=== PATIENT | male | born 1965 | race Caucasian/White ===

== ENCOUNTER 2016-06-08 09:16 | Emergency (ER) | payer MEDICARE ==
[2016-06-08 09:24] VITALS: BP 145/101
[2016-06-08] MEDS ORDERED: Albuterol/Ipratropium NEB.SOL* Albuterol 2.5 MG/Ipratropium 0.5 MG 3 ML INH ONE ×2 (09:56→11:02)
--- NOTE | 2016-06-08 11:21 | RAD ---
Indication: Cough. 2 views of the chest demonstrates postoperative changes in the left hilum presumably from left upper lobe resection. Postoperative changes are noted. Lung pinon are clear. Some pleural thickening is noted in the right lateral chest wall. When compared to previous exam of January 12, 2016 no significant change is noted. IMPRESSION: POSTOPERATIVE CHANGES IN THE LEFT UPPER LOBE. NO ACTIVE CARDIOPULMONARY DISEASE IS NOTED.
--- NOTE | 2016-06-08 12:18 | UC ---
Queta Marshall Salem, [facility] on 06/08/16 at 0944 . Respiratory Complaint HPI - HPI Summary HPI Summary: HPI: Patient is a 51 y/o male who presents to the with a productive cough for the past 4 days. He reports having a similar experience in the past and recovering after using a nebulizer. However, he states he used a nebulizer and only experienced mild alleviation this time. He also reports using Albuterol with mild alleviation, as well. Pt reports CP with cough, but denies sore throat. Pt also reports he quit smoking one month ago. note: VSS, blood pressure 145/101, post ox: 96%, 07/01 chest discomfort, rare EtOH, half-a-pack per day smoker, colon cancer with lung metastasis in remission since 2009. Left lung 2/3 removed 12/07, COPD, asthma, PE. Visit hx otherwise noncontributory. Nurses note: SOB, productive cough started Friday. - History of Current Complaint Chief Complaint: UCRespiratory Stated Complaint: CHEST CONGESTION Time Seen by Provider: 06/08/16 09:18 Hx Obtained From: Patient Onset/Duration: Gradual Onset, Lasting Days Severity Initially: Moderate Severity Currently: Moderate Aggravating Factors: Nothing Alleviating Factors: Nothing - Allergies/Home Medications Allergies/Adverse Reactions: Allergies Allergy/AdvReac Type Severity Reaction Status Date / Time Shellfish Allergy Allergy Severe Difficulty Verified 06/08/16 09:24 Breathing Home Medications: Home Medications Bisacodyl [Dulcolax] 5 mg PO DAILY 06/08/16 [History Confirmed 06/08/16] PMH/Surg Hx/FS Hx/Imm Hx Endocrine History Of: Denies: Diabetes, Thyroid Disease Cardiovascular History Of: Reports: Deep Vein Thrombosis - & PE Denies: Cardiac Disorders, Hypertension, Pacemaker/ICD, Congestive Heart Failure, Atrial Fibrillation Respiratory History Of: Reports: COPD, Asthma, Bronchitis, Pulmonary Embolism GI/ History Of: Reports: Gastroesophageal Reflux Denies: Ulcer, Renal Disease Neurological History Of: Denies: CVA, Dementia, Seizures Other History Of: Negative For: Anticoagulant Therapy - Surgical History Surgical History: Yes Surgery Procedure, Year, and Place: Tonsillectomy, vasectomy, lumbar fusion 2002 , R hip slipped capital femoral epiphysis pinned 1977, PINS REMOVED IN 1983, ventral hernia repair, colon resection 2007, lobectomy left lung 75%, tumors removed right lung, CHEMO PORT PLACED AND REMOVED - Family History Known Family History: Positive: Cardiac Disease, Hypertension, Diabetes, Other - [place] - both parents and grandparents. - Social History Alcohol Use: Rare Substance Use Type: None Smoking Status (MU): Current Every Day Smoker Type: Cigarettes Amount Used/How Often: 1/2 PPD Length of Time of Smoking/Using Tobacco: 35 years Have You Smoked in the Last Year: Yes Household Exposure Type: Cigarettes Review of Systems Constitutional: Negative ENT: Negative Respiratory: Cough All Other Systems Reviewed And Are Negative: Yes Physical Exam Triage Information Reviewed: Yes Appearance: Well-Appearing, No Pain Distress, Well-Nourished Vital Signs: Initial Vital Signs Temp 96.2 F 06/08/16 09:19 Pulse 70 06/08/16 09:19 Resp 24 06/08/16 09:19 BP 145/101 06/08/16 09:19 Pulse Ox 96 06/08/16 09:19 Vital Signs Reviewed: Yes Eyes: Positive: Conjunctiva Clear ENT: Positive: Hearing grossly normal, Pharynx normal, TMs normal. Negative: Muffled/hoarse voice Neck: Positive: Supple, Nontender, No Lymphadenopathy Respiratory: Positive: Other: - LUNGS DIFFUSE RONCHI AND SIGNIFICANT WHEEZES. Cardiovascular: Positive: RRR, No Murmur Abdomen Description: Positive: Nontender, No Organomegaly, Soft Bowel Sounds: Positive: Present Musculoskeletal: Positive: Strength Intact, Other: - ABDALLA. Neurological: Positive: Alert Psychological: Positive: Age Appropriate Behavior UC Diagnostic Evaluation - Laboratory O2 Sat by Pulse Oximetry: 96 - Radiology Radiology Interpretation Completed By: Radiologist - CXR IMPRESSION: POSTOPERATIVE CHANGES IN THE LEFT UPPER LOBE. NO ACTIVE CARDIOPULMONARY Re-Evaluation - Re-Evaluation First Eval Re-Evaluation Time: 10:30 Change: Improved Comment: Pt feals more comfortable. Decreased SOB. Second Eval Re-Evaluation Time: 11:27 Change: Improved Comment: Lungs show better air passage. Third Eval Re-Evaluation Time: 11:35 Change: Improved - More comfortable. Decreased wheezing. Increased air exchange. Respiratory Course/Dx - Course Course Of Treatment: I discussed with the pt the need to use a spacer and that he should generously use his nebulizer device. I started him on Zithromax, he wont smoke, and he will have 4 Albuterol tx a day using a spacer with follow up with his physician next week. He will also be put on prednisone. HTN: Elevated blood pressure without diagnosis of hypertension. Blood pressure elevated patient; patient on blood pressure medication - Differential Dx/Diagnosis Provider Diagnoses: Bronchitis with bronchospasm. Discharge - Discharge Plan Condition: Stable Disposition: HOME Prescriptions: Azithromycin TAB* [Zithromax TAB*] 250 mg PO DAILY #6 tab Spacer/Aerosol-Holding Chamber [Aerochamber Mv] 1 mis XX Q6HR #1 mis predniSONE TAB* [Deltasone TAB*] 20 mg PO TID #15 tab MDD 3 [ILLS Patient Education Materials: Acute Bronchitis (ED), Bronchospasm (ED) Referrals: Mellisa Tamez MD [Primary Care Provider] - Additional Instructions: Discharge Note: Your blood pressure reading today was above 120/80. It is important that you check your blood pressure at least 3 times over the next 4 weeks. Follow up with your health care provider for any elevated blood pressure within the next four weeks for further evaluation and treatment. See other information included with your discharge paper. IF YOU NEED A HEALTH CARE PROVIDER CALL GURWINDER HAYNES AT [facility] – [place] IN THE NEXT FOUR DAYS: [phone] WE DISCUSSED: 1. YOU HAVE BRONCHITIS AND WHEEZING. 2. I HAVE GIVEN YOU A ZPAK, SPACER, PREDNISONE. 3. WATCH FOR INCREASING TEMPERATURE, SHORTNESS OF BREATH, COUGH. GO TO ED FOR ANY OF THESE. 4. CALL YOUR DOCTOR NEXT WEEK FOR FURTHER EVALUATION AND TREATMENT NEEDED. 5. ALSO: COUGH, CONGESTION of CHEST, SINUSES OR EARS: The most important goal is to liquefy all the phlegm and get it out of your head and chest. Any illness causing cough, congestion, sore throat or sinus discomfort can be helped by doing the following: STAND UNDER SHOWER STREAM TO LOOSEN SECRETIONS. STAY AWAY FROM ANY SMOKE OR IRRITANTS. WHAT ELSE CAN HELP RELIEVE YOUR SYMPTOMS: GENERAL TYPES OF MEDICINE THAT MAY HELP DECONGESTANTS: helps relieve stuffiness and clears sinuses. Pseudoephedrine ( Sudafed or generic) is effective but you need to ask the pharmacist for it because it may be kept behind the counter. ANTIHISTAMINES: are NOT helpful in many colds and flus because they can worsen sore throat, dry eyes and mouth and cause drowsiness. Examples are diphenhydramine, doxylamine and chlorpheniramine. They can help dry you out if you are having profuse, clear drainage from the nose. EXPECTORANTS: helps thin mucous in the nose and chest, making it easier to clear the fluid out. Expectorants are in most combination cough/cold remedies and should be taken with plenty of water. Guaifenesin is the most common expectorant and it comes in pill or liquid form. Mucinex is an extended release form of guaifenesin. COUGH SUPPRESANT: reduces the body's cough reflex. Dextromethorphan is in over the counter products, but sometimes narcotics such as codeine or hydrocodone are used to suppress cough. SPECIFIC MEDICATIONS: The most important goal is to liquefy all the phlegm and get it out of your head and chest: The following medicines (in prescription form or you can buy them without prescription) may help: To help with cough: DEXTROMETHORPHAN (Vicks, Robitussin, Nyquil and other brands) To help break up phlegm: GUAIFENESIN (Mucinex, Robitussin, other brands) To help clear congestion: PSEUDOEPHEDRINE (Sudafed, Dimetapp, other brands) TRY TO CLEAR NOSE: AFRIN NASAL SPRAY: 2-3 SPRAYS PER NOSTRIL, TWICE A DAY FOR TWO DAYS ONLY. USEFUL WAYS TO FEEL BETTER WITHOUT MEDICATIONS: STAND UNDER SHOWER STREAM TO LOOSEN SECRETIONS. USE A VAPORIZOR. STAY AWAY FROM ANY SMOKE OR IRRITANTS. USE SALINE NASAL SPRAY TO KEEP FLOW OF MUCOUS FROM NOSTRILS AND SINUSES. CONSIDER USING NETI POT TO HELP WITH ALLERGIES AND CONGESTION IN THE NOSE. USE THIS THREE TIMES A WEEK. YOU CAN GET THIS AT [facility] IN [place] OR VARIOUS DRUGSTORES. DRINK LOTS OF WARM FLUIDS USEFUL HOME REMEDIES: WARM WATER GARGLES, WITH TSP OF SALT PER 8 OUNCES OF WATER, GARGLE FOR A FEW SECONDS AND SPIT OUT; GARGLE AND SPIT OUT; EVERY THREE HOURS. AND/OR: WARM WATER OR TEA, HONEY AND LEMON; 2-3 CUPS A DAY. FOR SORE THROAT: KEEP THROAT MOIST WITH LOZENGES; TEA AND HONEY. USE WARM WATER GARGLES 3-4 TIMES A DAY. FOLLOW UP: RE-CHECK IN 1O DAYS, NEEDED, IF YOU ARE NOT IMPROVING. RETURN HERE OR SEE YOUR PHYSICIAN. RE-CHECK SOONER IF INCREASED PAIN OR TEMPERATURE. The documentation as recorded by the Queta moses Salem accurately reflects the service I personally performed and the decisions made by me, Aidan Allison MD.
== END 2016-06-08 11:43 | disposition home or self-care (01) ==
LOC: UCEAST 09:16
DX: J20.9 Acute bronchitis, unspecified (principal); F17.210 Nicotine dependence, cigarettes, uncomplicated
CPT/HCPCS: 71020; 99213; A9270-GY; G0463

== ENCOUNTER 2016-09-19 12:13 | Emergency (ER) | payer MEDICARE ==
[2016-09-19] MEDS: NS 0.9% 1000 ML* 1,000 ML IV SCH ×2 (13:20→16:47)
[2016-09-19 13:34] LABS: Hematocrit 45 % (42-52); Hemoglobin 15.3 g/dl (14.0-18.0); Mean Corpuscular HGB Conc 34 g/dl (31-36); Mean Corpuscular Hemoglobin 30 pg (27-31); Mean Corpuscular Volume 87 fL (80-94); Mean Platelet Volume 8 um3 (7.4-10.4); Red Blood Count 5.17 10^6/ul (4.0-5.4); Red Cell Distribution Width 15 % (10.5-15); White Blood Count 5.6 10^3/ul (3.5-10.8)
[2016-09-19 13:50] LABS: Albumin 4.3 g/dL (3.2-5.2); BUN/Creatinine Ratio 13.9 (8-20); C Reactive Protein 10.23 mg/L (< 5.00); Calcium 9.6 mg/dL (8.6-10.3); EGFR African American 86.2 (>60); Globulin 2.7 g/dL (2-4); Potassium 4.2 mmol/L (3.5-5.0); Total Bilirubin 0.5 mg/dL (0.2-1.0)
[2016-09-19] MEDS ORDERED: Ondansetron INJ* 2 MG/ML VIAL IV ONE ×2 (13:57→16:33)
[2016-09-19] MEDS ORDERED: HYDROmorphone* 1 MG/ML 1 ML SYR IV ONE ×2 (13:57→16:33)
--- NOTE | 2016-09-19 14:51 | RAD ---
CLINICAL HISTORY: Right flank pain COMPARISON: November 03, 2015 TECHNIQUE: Multiple contiguous axial CT scans were obtained of the abdomen and pelvis, without intravenous contrast enhancement. Coronal and sagittal multiplanar reformations are submitted for review. Oral contrast was not administered. FINDINGS: LUNG BASES: The lung bases are clear. LIVER: The liver is diffusely low in attenuation compared to the spleen. There are no focal hepatic parenchymal masses. BILE DUCTS: There is no intrahepatic or extrahepatic biliary dilatation. GALLBLADDER: The gallbladder is normal, without pericholecystic inflammatory change. PANCREAS: The pancreas is normal, without mass or ductal dilatation. SPLEEN: Normal in size and appearance. UPPER GI TRACT: Evaluation of the gastrointestinal tract is limited by incomplete gastric distention. The upper GI tract is unremarkable. SMALL BOWEL AND MESENTERY: The small bowel is normal in contour, course, and caliber. There is no obstruction or dilatation. COLON: The colon is normal in contour, course, caliber. There is no pericolonic inflammatory change. ADRENALS: Normal bilaterally. KIDNEYS: The kidneys are normal in shape, size, contour, and axis. There is no hydronephrosis or nephrolithiasis. BLADDER: The bladder is collapsed and is not well evaluated. PELVIC ORGANS: The prostate gland is normal. The seminal vesicles are symmetric. AORTA: There is calcific atherosclerotic disease of the abdominal aorta and its branches, without aneurysmal dilatation IVC: Unremarkable LYMPH NODES: There is no lymphadenopathy by size criteria. ABDOMINAL WALL: A hernia repair mesh is noted. There is a small residual fat-containing ventral hernia BONES AND SOFT TISSUES: The patient is status post laminectomy and fusion. OTHER: None IMPRESSION: 1. FATTY LIVER. 2. STATUS POST HERNIA REPAIR WITH A SMALL RESIDUAL FAT-CONTAINING VENTRAL HERNIA. 3. NO APPRECIABLE HYDRONEPHROSIS OR NEPHROLITHIASIS
[2016-09-19] MEDS ORDERED: Dicyclomine CAP* 10 MG PO ONE (19:14)
[2016-09-19 19:57] VITALS: BP 122/75
[2016-09-19] MEDS ORDERED: Ondansetron ODT TAB* 4 MG PO ONE (20:00)
--- NOTE | 2016-09-19 21:49 | ED ---
Leatha Marshall Edward, scribed for Doe Baez MD on 09/19/16 at 1350 . Abdominal Pain/Male - HPI Summary HPI Summary: 51 y/o male presents to ED c/o diffuse ABD pain starting at 05:00 this morning. The pain comes in intermittent episodes lasting minutes (varying from a few minutes to 30 minutes). The pain is not aggravated or alleviated by position change. Associated sx: chronic back pain, chronic problems with bowel movements (last bowel movement last night), nausea and diarrhea. Denies problems with urination. PMHx colon CA 2006. SHx partial colectomy, back surgery ([place] 2002). Not allergic to any medications. - History of Current Complaint Chief Complaint: EDAbdPain Stated Complaint: ABD PAIN, Time Seen by Provider: 09/19/16 13:32 Hx Obtained From: Patient Onset/Duration: Sudden Onset, Lasting Hours - 05:00, Still Present Timing: Intermittent, Lasting Minutes - 10-30 minutes, varying Severity Initially: Severe Severity Currently: Severe Pain Intensity: 8 Pain Scale Used: 0-10 Numeric Location: Discrete At: RUQ, Discrete At: RLQ Character: Other: - Stabbing Aggravating Factor(s): Nothing Alleviating Factor(s): Nothing Associated Signs And Symptoms: Positive: Negative - No trouble with urination, Nausea, Diarrhea - Chronic - Allergies/Home Medications Allergies/Adverse Reactions: Allergies Allergy/AdvReac Type Severity Reaction Status Date / Time Shellfish Allergy Allergy Severe Difficulty Verified 08/15/16 10:06 Breathing PMH/Surg Hx/FS Hx/Imm Hx Previously Healthy: No Endocrine/Hematology History: Denies: Hx Anticoagulant Therapy, Hx Diabetes, Hx Systemic Lupus Erythematosus, Hx Thyroid Disease Cardiovascular History: Reports: Hx Deep Vein Thrombosis - & PE Denies: Hx Congestive Heart Failure, Hx Hypertension, Hx Pacemaker/ICD, Other Cardiovascular Problems/Disorders Respiratory History: Reports: Hx Asthma, Hx Chronic Obstructive Pulmonary Disease (COPD), Hx Pulmonary Embolism, Hx Sleep Apnea, Other Respiratory Problems/Disorders - HX OF PE AND METASTATIC COLON CA INTO LUNG GI History: Reports: Other GI Disorders - Colon CA 2006 Denies: Hx Ulcer History: Reports: Other Problems/Disorders - Hx endometriosis Denies: Hx Dialysis, Hx Renal Disease Musculoskeletal History: Reports: Hx Arthritis - RA jr. as child, Hx Back Problems, Other Musculoskeletal History - R hip (see above), lumbar fusion 2002 , juvenile RA Denies: Hx Rheumatoid Arthritis Sensory History: Denies: Hx Hearing Aid Neurological History: Denies: Hx Dementia, Hx Headaches, Hx Seizures Psychiatric History: Reports: Hx Panic Disorder - ANXIETY Denies: Hx Substance Abuse - Cancer History Cancer Type, Location and Year: Colon CA first dx 2006, lung metastasis 2009, in remission Hx Chemotherapy: - 2009 - Surgical History Surgery Procedure, Year, and Place: Tonsillectomy, vasectomy, lumbar fusion 2002 , R hip slipped capital femoral epiphysis pinned 1977, PINS REMOVED IN 1982, ventral hernia repair, colon resection 2006, lobectomy left lung 75%, tumors removed right lung, CHEMO PORT PLACED AND REMOVED Infectious Disease History: No Infectious Disease History: Denies: Hx Clostridium Difficile, Hx Hepatitis, Hx Human Immunodeficiency Virus (HIV), Hx of Known/Suspected MRSA, Hx Shingles, Hx Tuberculosis, Hx Known/ Suspected VRE, Hx Known/Suspected VRSA, History Other Infectious Disease, Traveled Outside the [place] in Last 30 Days - Family History Known Family History: Positive: Cardiac Disease, Hypertension, Diabetes, Other - [place] - both parents and grandparents. - Social History Alcohol Use: Rare Substance Use Type: Reports: None Hx Tobacco Use: Yes Smoking Status (MU): Current Every Day Smoker Type: Cigarettes Amount Used/How Often: 1/2 PPD Length of Time of Smoking/Using Tobacco: 35 years Have You Smoked in the Last Year: Yes Review of Systems Constitutional: Negative Eyes: Negative ENT: Negative Cardiovascular: Negative Respiratory: Negative Positive: Abdominal Pain, Diarrhea, Nausea, Other - Chronic problems with bowel movements Genitourinary: Negative - Denies trouble with urination Positive: Myalgia - Chronic back pain Skin: Negative Neurological: Negative Psychological: Normal All Other Systems Reviewed And Are Negative: Yes Physical Exam Triage Information Reviewed: Yes Vital Signs On Initial Exam: Initial Vitals Temp Pulse Resp BP Pulse Ox 97.2 F 66 20 144/110 99 09/19/16 12:24 09/19/16 12:24 09/19/16 12:24 09/19/16 12:24 09/19/16 12:24 Vital Signs Reviewed: Yes Appearance: Positive: Well-Appearing, No Pain Distress Skin: Positive: Warm, Skin Color Reflects Adequate Perfusion, Dry Head/Face: Positive: Normal Head/Face Inspection Eyes: Positive: Normal ENT: Positive: Normal ENT inspection Neck: Positive: Supple, Nontender Cardiovascular: Positive: RRR Abdomen Description: Positive: Soft, Other: - Tender in RLQ, mildly tender in RUQ. Bowel Sounds: Positive: Present Musculoskeletal: Positive: Normal Neurological: Positive: Normal Psychiatric: Positive: Normal, Affect/Mood Appropriate Diagnostics - Vital Signs Vital Signs Temp Pulse Resp BP Pulse Ox 09/19/16 13:00 70 132/88 98 09/19/16 12:39 60 99 09/19/16 12:37 117/96 09/19/16 12:25 97.4 F 68 20 144/110 98 09/19/16 12:24 97.2 F 66 20 144/110 99 - Laboratory Lab Results: Lab Results 09/19/16 Range/Units 13:16 WBC 5.6 (3.5-10.8) 10^3/ul RBC 5.17 (4.0-5.4) 10^6/ul Hgb 15.3 (14.0-18.0) g/dl Hct 45 (42-52) % MCV 87 (80-94) fL MCH 30 (27-31) pg MCHC 34 (31-36) g/dl RDW 15 (10.5-15) % Plt Count 174 (150-450) 10^3/ul MPV 8 (7.4-10.4) um3 Neut % (Auto) 68.3 (38-83) % Lymph % (Auto) 24.2 L (25-47) % [place] % (Auto) 6.3 (1-9) % Eos % (Auto) 0.4 (0-6) % Baso % (Auto) 0.8 (0-2) % Absolute Neuts (auto) 3.8 (1.5-7.7) 10^3/ul Absolute Lymphs (auto) 1.4 (1.0-4.8) 10^3/ul Absolute Monos (auto) 0.4 (0-0.8) 10^3/ul Absolute Eos (auto) 0 (0-0.6) 10^3/ul Absolute Basos (auto) 0 (0-0.2) 10^3/ul Absolute Nucleated RBC 0.01 10^3/ul Nucleated RBC % 0.1 Result Diagrams: 09/19/16 13:16 09/19/16 13:16 Lab Statement: Any lab studies that have been ordered have been reviewed, and results considered in the medical decision making process. - CT ABD/PELVIS CT CT Interpretation: Positive (See Comments) - 1. FATTY LIVER. 2. STATUS POST HERNIA REPAIR WITH A SMALL RESIDUAL FAT-CONTAINING VENTRAL HERNIA. 3. NO APPRECIABLE HYDRONEPHROSIS OR NEPHROLITHIASIS CT Interpretation Completed By: Radiologist Abdominal Pain Fem Course/Dx - Course Course Of Treatment: Mr. Kelly has had a peristaltic-type pain in his RLQ since 0500. It goes away completely in between waves that last seconds to minutes. His W/U here including labs and CT was negative and he improved some with medications. He may be brewing a problem but is stable now and I will let him go home and F/U with Dr. Martinez in the morning. Assessment/Plan: Discussed care with Dr. Sheri Lopez (Surgery) @ 16:08. She agreed to come see the patient in the ED. - Diagnoses Provider Diagnoses: Abdominal pain Discharge - Discharge Plan Condition: Stable Disposition: HOME Patient Education Materials: Abdominal Pain (ED) Referrals: Aidan Martinez MD [Medical Doctor] - 1 Day (Follow up with Dr. Martniez in the morning please.) The documentation as recorded by the Leatha moses Edward accurately reflects the service I personally performed and the decisions made by , Doe Baez MD.
== END 2016-09-19 19:58 | disposition home or self-care (01) ==
LOC: ED 12:13
DX: R10.84 Generalized abdominal pain (principal); R19.7 Diarrhea, unspecified; F17.210 Nicotine dependence, cigarettes, uncomplicated
CPT/HCPCS: 36415; 74176; 80053; 83605; 83690; 85025; 85610; 85730; 86140; 96374; 96375; 99284; A9270-GY; J1170; J2405

== ENCOUNTER 2016-12-25 10:07 | Emergency (ER) | payer MEDICARE ==
[2016-12-25 10:34] VITALS: BP 135/91
--- NOTE | 2016-12-25 11:24 | UC ---
Respiratory Complaint HPI - HPI Summary HPI Summary: PT WITH H/O LUNG RESECTION DUE TO METASTATIC COLON CANCER PRESENTS WITH SEVERAL DAYS OF PRODUCTIVE COUGH, CONGESTION, FATIGUE, CHEST TIGHTNESS AND SCRATCHY THROAT. SX WORSE WHEN HE LAYS FLAT. NO FEVER. FEELS SOB AND WHEEZY. HAS ALBUTEROL AT HOME WHICH HELPS TRANSIENTLY. - History of Current Complaint Chief Complaint: UCRespiratory Stated Complaint: COUGH CONGESTION Time Seen by Provider: 12/25/16 11:05 Hx Obtained From: Patient Onset/Duration: Gradual Onset, Lasting Days, Still Present Timing: Constant Severity Initially: Moderate Severity Currently: Moderate Pain Intensity: 7 Pain Scale Used: 0-10 Numeric Character: Cough: Productive Aggravating Factors: Recumbent Position Alleviating Factors: Bronchodilator Associated Signs And Symptoms: Positive: Dyspnea, Wheezing, URI, Nasal Congestion. Negative: Fever, Chills, Pleuritic Chest Pain - Allergies/Home Medications Allergies/Adverse Reactions: Allergies Allergy/AdvReac Type Severity Reaction Status Date / Time Shellfish Allergy Allergy Severe Difficulty Verified 12/18/16 10:03 Breathing PMH/Surg Hx/FS Hx/Imm Hx Respiratory History: COPD, Asthma Cancer History: Colorectal Cancer - WITH METS TO LUNGS Other History Of: Negative For: Anticoagulant Therapy - Surgical History Surgical History: Yes Surgery Procedure, Year, and Place: Tonsillectomy, vasectomy, lumbar fusion 2002 , R hip slipped capital femoral epiphysis pinned 1977, PINS REMOVED IN 1982, ventral hernia repair, colon resection 2006, lobectomy left lung 75%, tumors removed right lung, CHEMO PORT PLACED AND REMOVED - Family History Known Family History: Positive: Cardiac Disease, Hypertension, Diabetes, Other - [place] - both parents and grandparents. - Social History Alcohol Use: Occasionally Alcohol Amount: 0-2 per week Substance Use Type: None Smoking Status (MU): Light Every Day Tobacco Smoker Type: Cigarettes Amount Used/How Often: 1/2 PPD Length of Time of Smoking/Using Tobacco: 35 years Have You Smoked in the Last Year: Yes Household Exposure Type: Cigarettes Review of Systems Constitutional: Fatigue ENT: Sore Throat, Nasal Discharge Respiratory: Shortness Of Breath, Cough Cardiovascular: Negative Gastrointestinal: Negative All Other Systems Reviewed And Are Negative: Yes Physical Exam Triage Information Reviewed: Yes Appearance: No Pain Distress, Well-Nourished, Ill-Appearing - MILD Vital Signs: Initial Vital Signs Temp 96.1 F 12/25/16 10:26 Pulse 72 12/25/16 10:26 Resp 17 12/25/16 10:26 BP 135/91 12/25/16 10:26 Pulse Ox 99 12/25/16 10:26 Vital Signs Reviewed: Yes Eyes: Positive: Conjunctiva Clear ENT: Positive: Hearing grossly normal Neck: Positive: Supple, Nontender, No Lymphadenopathy Respiratory: Positive: No respiratory distress, No accessory muscle use, Decreased breath sounds, Wheezing - DIFFUSE Cardiovascular Exam: Normal Abdomen Description: Positive: Soft Musculoskeletal: Positive: No Edema Neurological: Positive: Alert Psychological: Positive: Age Appropriate Behavior Skin: Negative: rashes UC Diagnostic Evaluation - Laboratory O2 Sat by Pulse Oximetry: 99 Respiratory Course/Dx - Course Course Of Treatment: PT DECLINES NEB TREATMENT HERE. PREFERS TO DO IT AT HOME. RX FOR PREDNISONE AND AZITH TODAY. F/U IF NEEDED. - Differential Dx/Diagnosis Provider Diagnoses: ACUTE BRONCHITIS WITH BRONCHOSPASM Discharge - Discharge Plan Condition: Stable Disposition: HOME Prescriptions: Azithromycin [Azithromycin 500 MG TAB] 500 mg PO DAILY #5 tab predniSONE TAB* [Deltasone TAB*] 50 mg PO DAILY #5 tab Patient Education Materials: Acute Bronchitis (ED), Bronchospasm (ED) Referrals: Mellisa Tamez MD [Primary Care Provider] - If Needed Additional Instructions: USE YOUR NEBS PRESCRIBED. SEEK FOLLOW-UP IF YOU ARE NOT IMPROVING EXPECTED WITH TREATMENT.
== END 2016-12-25 11:32 | disposition home or self-care (01) ==
LOC: UCEAST 10:07
DX: J20.9 Acute bronchitis, unspecified (principal); F17.210 Nicotine dependence, cigarettes, uncomplicated; I10 Essential (primary) hypertension
CPT/HCPCS: 99212; G0463

== ENCOUNTER 2017-03-19 16:58 | Emergency (ER) | payer MEDICARE ==
[2017-03-19] MEDS ORDERED: Aspirin Low Dose CHEW TAB* 81 MG PO ONE (17:24)
[2017-03-19 17:49] LABS: ABS Basophils 0 10^3/ul (0-0.2); ABS Eosinophils 0.1 10^3/ul (0-0.6); ABS Lymphocytes 1.7 10^3/ul (1.0-4.8); ABS Monocytes 0.7 10^3/ul (0-0.8); ABS Neutrophils 4.5 10^3/ul (1.5-7.7); ABS Nucleated RBC 0.01 10^3/ul; Eosinophil % 0.9 % (0-6); Hematocrit 42 % (42-52); Hemoglobin 14.9 g/dl (14.0-18.0); Mean Corpuscular HGB Conc 35 g/dl (31-36); Mean Corpuscular Hemoglobin 30 pg (27-31); Mean Corpuscular Volume 86 fL (80-94); Mean Platelet Volume 8 um3 (7.4-10.4); Nucleated Red Blood Cells % 0.1; Platelet Count 166 10^3/ul (150-450); Red Blood Count 4.94 10^6/ul (4.0-5.4); Red Cell Distribution Width 15 % (10.5-15); White Blood Count 6.9 10^3/ul (3.5-10.8)
[2017-03-19] MEDS ORDERED: Morphine INJ* 4 MG/ML 1 ML CARPUJECT IV ONE (17:56)
[2017-03-19 18:05] LABS: EGFR Non-African American 70.6 (>60)
--- NOTE | 2017-03-19 18:08 | RAD ---
INDICATION: Chest pain. COMPARISON: Comparison is made with a prior CT of the chest from December 04, 2016 and a prior chest x-ray study from June 08, 2016. TECHNIQUE: A portable view of the chest was obtained. FINDINGS: The heart is within normal limits in size. There is increased density which projects medially over the left upper lobe toward the lung apex which is unchanged from the prior study and appears to correlate with postsurgical changes and a prominent fat pad on the prior CT of the chest study. The lungs are otherwise clear. No pleural effusion is seen. Multiple surgical clips project over the left hilum. IMPRESSION: POSTSURGICAL CHANGES, NO EVIDENCE FOR ACUTE FINDING.
[2017-03-19] MEDS ORDERED: Ondansetron INJ* 2 MG/ML VIAL ONE (18:19)
[2017-03-19] MEDS ORDERED: Ondansetron INJ* 2 MG/ML VIAL IV ONE (18:23)
[2017-03-19] MEDS ORDERED: Ketorolac INJ* 30 MG/ML 1 ML VIAL IV PUSH ONE (19:25)
[2017-03-19 19:42] VITALS: BP 135/92
--- NOTE | 2017-03-19 21:23 | ED ---
Franck Marshall Gabriel, scribed for Maxwell Decker MD on 03/19/17 at 1753 . HPI Chest Pain - HPI Summary HPI Summary: This patient is a 51 year old M presenting to [facility] with a chief complaint of CP since 03/17/17. The patient rates the pain 4/10 in severity, located in his left side, and describes it as waxing and waning. Patient reports fatigue, palpitations, and SOB. Patient denies cough and increased Le or back pain from baseline. Patient has not experience any recent trauma and recently quit smoking. He has history of PE and has had a mild heart attack. Also he had colon cancer that metastasized into his lungs but states it is currently in remission, per Dr. Ayers. He reports that the pain currently does not feel similar to his PE. He has not taken ASA today. Patient recently was diagnosed with DM but denies new weight loss or gain. - History of Current Complaint Chief Complaint: EDChestPainROMI Time Seen by Provider: 03/19/17 17:46 Hx Obtained From: Patient Onset/Duration: Started Days Ago - 2 Timing: Constant Initial Severity: Mild Current Severity: Mild Pain Intensity: 4 Pain Scale Used: 0-10 Numeric Chest Pain Location: Left Anterior Chest Pain Radiates: No - Allergy/Home Medications Allergies/Adverse Reactions: Allergies Allergy/AdvReac Type Severity Reaction Status Date / Time Shellfish Allergy Allergy Severe Difficulty Verified 02/17/17 10:28 Breathing Home Medications: Home Medications Bisacodyl EC TAB* [Dulcolax EC TAB*] 5 mg PO DAILY PRN 03/19/17 [History Confirmed 03/19/17] metFORMIN* [Glucophage 500 MG TAB *] 500 mg PO BID 03/19/17 [History Confirmed 03/19/17] PMH/Surg Hx/FS Hx/Imm Hx Previously Healthy: No Endocrine/Hematology History: Reports: Hx Diabetes Denies: Hx Anticoagulant Therapy, Hx Systemic Lupus Erythematosus, Hx Thyroid Disease Cardiovascular History: Reports: Hx Deep Vein Thrombosis - & PE Denies: Hx Congestive Heart Failure, Hx Hypertension, Hx Pacemaker/ICD, Other Cardiovascular Problems/Disorders Respiratory History: Reports: Hx Asthma, Hx Chronic Obstructive Pulmonary Disease (COPD), Hx Pulmonary Embolism, Hx Sleep Apnea, Other Respiratory Problems/Disorders - HX OF PE AND METASTATIC COLON CA INTO LUNG GI History: Reports: Other GI Disorders - Colon CA 2006 Denies: Hx Ulcer History: Reports: Other Problems/Disorders - Hx endometriosis Denies: Hx Dialysis, Hx Renal Disease Musculoskeletal History: Reports: Hx Arthritis - RA jr. as child, Hx Back Problems, Other Musculoskeletal History - R hip (see above), lumbar fusion 2002 , juvenile RA Denies: Hx Rheumatoid Arthritis Sensory History: Denies: Hx Hearing Aid Neurological History: Denies: Hx Dementia, Hx Headaches, Hx Seizures Psychiatric History: Reports: Hx Panic Disorder - ANXIETY Denies: Hx Substance Abuse - Cancer History Cancer Type, Location and Year: Colon CA first dx 2006, lung metastasis 2009, in remission. last chemo 2009 Hx Chemotherapy: - 2009 - Surgical History Surgery Procedure, Year, and Place: Tonsillectomy, vasectomy, lumbar fusion 2002 , R hip slipped capital femoral epiphysis pinned 1977, PINS REMOVED IN 1982, ventral hernia repair, colon resection 2006, lobectomy left lung 75%, tumors removed right lung, CHEMO PORT PLACED AND REMOVED Infectious Disease History: No Infectious Disease History: Denies: Hx Clostridium Difficile, Hx Hepatitis, Hx Human Immunodeficiency Virus (HIV), Hx of Known/Suspected MRSA, Hx Shingles, Hx Tuberculosis, Hx Known/ Suspected VRE, Hx Known/Suspected VRSA, History Other Infectious Disease, Traveled Outside the [place] in Last 30 Days - Family History Known Family History: Positive: Cardiac Disease, Hypertension, Diabetes, Other - CA - both parents and grandparents. - Social History Alcohol Use: Occasionally Alcohol Amount: 0-2 per week Substance Use Type: Reports: Marijuana Hx Tobacco Use: Yes Smoking Status (MU): Former Smoker Type: Cigarettes Amount Used/How Often: recently quit as of 03/19/17 Length of Time of Smoking/Using Tobacco: 35 years Have You Smoked in the Last Year: Yes Review of Systems Positive: Fatigue Positive: Palpitations, Chest Pain Positive: Shortness Of Breath. Negative: Cough Musculoskeletal: Negative - increase in LE and back pain All Other Systems Reviewed And Are Negative: Yes Physical Exam - Summary Physical Exam Summary: Appearance: Well appearing, patient jumps with pain with any light palpitation of the left chest Skin: warm, dry, reflects adequate perfusion Head/face: normal Eyes: EOMI, PEPITO ENT: normal Neck: supple, non-tender Respiratory: CTA, breath sounds present Cardiovascular: RRR, pulses symmetrical Abdomen: non-tender, soft Bowel: present Musculoskeletal: normal, strength/ROM intact Neuro: normal, sensory motor intact, A&Ox3 Triage Information Reviewed: Yes Vital Signs On Initial Exam: Initial Vitals Temp Pulse Resp BP Pulse Ox 97.7 F 74 22 142/97 99 03/19/17 17:01 03/19/17 17:01 03/19/17 17:01 03/19/17 17:01 03/19/17 17:01 Vital Signs Reviewed: Yes Diagnostics - Vital Signs Vital Signs Temp Pulse Resp BP Pulse Ox 03/19/17 17:01 97.7 F 74 22 142/97 99 - Laboratory Lab Results: Lab Results 03/19/17 Range/Units 17:32 WBC 6.9 (3.5-10.8) 10^3/ul RBC 4.94 (4.0-5.4) 10^6/ul Hgb 14.9 (14.0-18.0) g/dl Hct 42 (42-52) % MCV 86 (80-94) fL MCH 30 (27-31) pg MCHC 35 (31-36) g/dl RDW 15 (10.5-15) % Plt Count 166 (150-450) 10^3/ul MPV 8 (7.4-10.4) um3 Neut % (Auto) 65.0 (38-83) % Lymph % (Auto) 24.0 L (25-47) % Carver % (Auto) 9.7 H (1-9) % Eos % (Auto) 0.9 (0-6) % Baso % (Auto) 0.4 (0-2) % Absolute Neuts (auto) 4.5 (1.5-7.7) 10^3/ul Absolute Lymphs (auto) 1.7 (1.0-4.8) 10^3/ul Absolute Monos (auto) 0.7 (0-0.8) 10^3/ul Absolute Eos (auto) 0.1 (0-0.6) 10^3/ul Absolute Basos (auto) 0 (0-0.2) 10^3/ul Absolute Nucleated RBC 0.01 10^3/ul Nucleated RBC % 0.1 Result Diagrams: 03/19/17 17:32 03/19/17 17:32 Lab Statement: Any lab studies that have been ordered have been reviewed, and results considered in the medical decision making process. - Radiology CXR Radiology Interpretation Completed By: Radiologist - POSTSURGICAL CHANGES, NO EVIDENCE FOR ACUTE FINDING. ED physician has reviewed this radiology report - EKG 17:08 Cardiac Rate: NL EKG Rhythm: Sinus Rhythm - at [address] Segment: Normal EKG Interpretation: normal axis, normal intervals Re-Evaluation - Re-Evaluation First Eval Re-Evaluation Time: 19:24 Change: Improved Comment: Patient is feeling better and will be given toradol. Chest Pain Course/Dx - Course Course Of Treatment: pt with equisite tenderness to chest wall. No zoster lesions. Trop 0 and ddimer neg. ECG without acute changes. No pneumonia etc. Tx for chest wall pain with improvement here. Instructed to watch out for zoster eruption. D/C to f/u closely with PMD. Assessment/Plan: Patient has a IMAN score of 0. - Diagnoses Provider Diagnoses: Atypical chest pain, Chest wall pain Discharge - Discharge Plan Condition: Good Disposition: HOME Prescriptions: Cyclobenzaprine HCl [Flexeril 5 mg (NF)] 5 mg PO TID PRN #15 tab PRN Reason: Pain Famotidine TAB* [Pepcid 20 MG TAB*] 20 mg PO BID #14 tab Naproxen Sodium [Naproxen Sodium CR 375 mg tab] 375 mg PO BID PRN #10 tab PRN Reason: Pain Patient Education Materials: Chest Pain (ED), Costochondritis (ED) Referrals: Mellisa Tamez MD [Primary Care Provider] - Additional Instructions: deep breathing exercises every hour. Return with fever, difficulty breathing, increased pain, worse or other concerns as discussed. Call your doctor first thing in the morning for follow up. The documentation as recorded by the Franck moses Gabriel accurately reflects the service I personally performed and the decisions made by me, Maxwell Decker MD.
== END 2017-03-19 19:42 | disposition home or self-care (01) ==
LOC: ED 16:58
DX: R07.89 Other chest pain (principal); R06.02 Shortness of breath; R00.2 Palpitations; Z87.891 Personal history of nicotine dependence
CPT/HCPCS: 36415; 71010; 80053; 82553; 83605; 83880; 84484; 85025; 85379; 93005; 96374; 96375; 99282; A9270-GY; J1885; J2270; J2405

== ENCOUNTER 2018-02-15 10:37 | Emergency (ER) | payer MEDICARE ==
[2018-02-15] MEDS ORDERED: Ketorolac INJ* 60 MG/2 ML VIAL IM ONE (12:05)
--- NOTE | 2018-02-15 12:17 | ED ---
Neck Pain - HPI Summary HPI Summary: Patient is a 52-year-old female with a history of chronic back pain currently on morphine 15 mg 3 times daily as well as Flexeril 10 mg 3 times daily presenting to the ED with left-sided neck pain after he awoke from sleep 5 days ago. He states the morphine does not improve his symptoms and is looking for something in addition to this. He states he is not looking for a image or additional pain medication. Has an appointment tomorrow with his pain management physician. He denies any other symptoms at this time. He states he awoke 5 days ago with left-sided neck pain radiating from cervical spine and is having difficulty with rotating to the left or right. Flexion and extension with pain. Denies any numbness or tingling. Denies any difficulty with range of motion of the ipsilateral arm. - History of Current Complaint Chief Complaint: EDNeckComplaint Stated Complaint: NECK PAIN, SHOULDER Time Seen by Provider: 02/15/18 11:26 Hx Obtained From: Patient Onset/Duration Of Injury/Symptoms: Days Mechanism Of Injury: Other - no known trauma Timing: Lasting Days Onset/Duration: Sudden Onset Severity Initially: Moderate Severity Currently: Moderate Pain Intensity: 5 Pain Scale Used: 0-10 Numeric Location: Discrete At: - left sided neck pain Aggravating Factors: Nothing Alleviating Factors: Nothing Associated Signs & Symptoms: Positive: Negative - Risk Factors Meningitis Risk Factors: Negative Risk Factors For Cervical Spine Injury: Posterior Midline Cervical Spine Tenderness - Allergies/Home Medications Allergies/Adverse Reactions: Allergies Allergy/AdvReac Type Severity Reaction Status Date / Time shellfish derived Allergy Severe Difficulty Verified 02/15/18 10:44 Breathing PMH/Surg Hx/FS Hx/Imm Hx Previously Healthy: Yes Endocrine/Hematology History: Reports: Hx Diabetes Denies: Hx Anticoagulant Therapy, Hx Systemic Lupus Erythematosus, Hx Thyroid Disease Cardiovascular History: Reports: Hx Angina, Hx Deep Vein Thrombosis - & PE Denies: Hx Congestive Heart Failure, Hx Hypertension, Hx Pacemaker/ICD, Other Cardiovascular Problems/Disorders Respiratory History: Reports: Hx Asthma, Hx Chronic Obstructive Pulmonary Disease (COPD), Hx Lung Cancer - metastatic from colon , Hx Pulmonary Embolism, Hx Sleep Apnea, Other Respiratory Problems/Disorders - HX OF PE AND METASTATIC COLON CA INTO LUNG GI History: Reports: Other GI Disorders - Colon CA 2006 Denies: Hx Ulcer History: Reports: Other Problems/Disorders - Hx endometriosis Denies: Hx Dialysis, Hx Renal Disease Musculoskeletal History: Reports: Hx Arthritis, Hx Back Problems, Other Musculoskeletal History - R hip (see above), lumbar fusion 2002 Denies: Hx Rheumatoid Arthritis Sensory History: Reports: Hx Contacts or Glasses - bifocals Denies: Hx Hearing Aid Opthamlomology History: Reports: Hx Contacts or Glasses - bifocals Neurological History: Denies: Hx Dementia, Hx Headaches, Hx Seizures Psychiatric History: Reports: Hx Anxiety, Hx Panic Disorder Denies: Hx Substance Abuse - Cancer History Cancer Type, Location and Year: Colon CA first dx 2006, lung metastasis 2009, in remission. last chemo 2009 Hx Chemotherapy: - 2009 - Surgical History Surgery Procedure, Year, and Place: Tonsillectomy, vasectomy, lumbar fusion 2002 , R hip slipped capital femoral epiphysis pinned 1977, PINS REMOVED IN 1982, ventral hernia repair, colon resection 2006, lobectomy left lung 75%, tumors removed right lung, CHEMO PORT PLACED AND REMOVED - Immunization History Date of Tetanus Vaccine: UTD Date of Influenza Vaccine: 12/2016 Hx Pertussis Vaccination: No Immunizations Up to Date: Yes Infectious Disease History: No Infectious Disease History: Denies: Hx Clostridium Difficile, Hx Hepatitis, Hx Human Immunodeficiency Virus (HIV), Hx of Known/Suspected MRSA, Hx Shingles, Hx Tuberculosis, Hx Known/ Suspected VRE, Hx Known/Suspected VRSA, History Other Infectious Disease, Traveled Outside the [place] in Last 30 Days - Family History Known Family History: Positive: Cardiac Disease, Hypertension, Diabetes, Other - [place] - both parents and grandparents. - Social History Alcohol Use: None Alcohol Amount: 0-2 per week Substance Use Type: Reports: None Hx Tobacco Use: Yes Smoking Status (MU): Current Every Day Smoker Type: Cigarettes Amount Used/How Often: 1/2 PPD Length of Time of Smoking/Using Tobacco: 35 years Have You Smoked in the Last Year: Yes Review of Systems Constitutional: Negative Negative: Fever, Chills, Fatigue, Skin Diaphoresis Negative: Palpitations, Chest Pain Negative: Shortness Of Breath, Cough Genitourinary: Negative Positive: no symptoms reported, see HPI Positive: Arthralgia - left sided neck pain Negative: Rash, Bruising Neurological: Negative All Other Systems Reviewed And Are Negative: Yes Physical Exam Triage Information Reviewed: Yes Vital Signs On Initial Exam: Initial Vitals Temp Pulse Resp BP Pulse Ox 96.9 F 89 16 156/100 98 02/15/18 10:37 02/15/18 10:37 02/15/18 10:37 02/15/18 10:37 02/15/18 10:37 Vital Signs Reviewed: Yes Appearance: Positive: Well-Appearing, Well-Nourished Skin: Positive: Skin Color Reflects Adequate Perfusion Head/Face: Positive: Normal Head/Face Inspection Eyes: Positive: EOMI, PEPITO, Conjunctiva Clear Neck: Positive: Supple Respiratory/Lung Sounds: Positive: Clear to Auscultation, Breath Sounds Present Cardiovascular: Positive: RRR, Pulses are Symmetrical in both Upper and Lower Extremities Musculoskeletal: Positive: Pain @ - left sided neck pain radiating from the posterior cervical spine Neurological: Positive: Sensory/Motor Intact, Alert, Oriented to Person Place, Time, Speech Normal Psychiatric: Positive: Affect/Mood Appropriate AVPU Assessment: Alert Diagnostics - Vital Signs Vital Signs Temp Pulse Resp BP Pulse Ox 02/15/18 10:37 96.9 F 89 16 156/100 98 - Laboratory Lab Statement: Any lab studies that have been ordered have been reviewed, and results considered in the medical decision making process. Neck Course/Dx - Course Course Of Treatment: Patient is evaluated for left-sided neck pain radiating from the posterior cervical spine. He states this occurred after sleeping on the neck wrong approximately 5 days ago. He has been taking his 50 mg 3 times daily of morphine as well as his Flexeril. He states he does not like the Flexeril due to the side effects. He states the morphine has not been improving the pain and is looking for something additional. I discussed the treatment options with the patient. Due to the mechanism of the injury, cervical CT or x-ray is not warranted at this time. Patient states he will follow up with his PCP regarding any imaging. He will be discharged with a short course of steroid as well as Toradol and is encouraged to take only the Toradol as opposed to other NSAIDs. He will also add back in his at home medication of Flexeril 3 times daily. On physical examination, there is tenderness to the posterior cervical spine only with rotation of the neck. No step-off is noted. - Diagnoses Differential Dx/HQI/PQRI: Positive: Cervical Fracture, Dystonia, Sprain, Torticollis Provider Diagnoses: Cervicalgia Discharge - Sign-Out/Discharge Documenting (check all that apply): Patient Departure - Discharge Plan Condition: Stable Disposition: HOME Prescriptions: Ketorolac TAB * [Toradol TAB *] 10 mg PO Q6H #16 tab predniSONE TAB* [Deltasone TAB*] 50 mg PO DAILY #5 tab Patient Education Materials: Cervical Strain (ED) Referrals: Mellisa Tamez MD [Primary Care Provider] - Additional Instructions: Moist heat to the area Toradol 10mg four times daily x 4 days DO NOT TAKE IBUPROFEN/MOTRIN/NAPROXEN OR OTHER NSAIDS WHILE TAKING THIS MEDICATION Prednisone once daily in the morning x 5 days Flexeril up to three times daily for muscle strain/pain Do not drive while taking flexeril or your at home morphine Please follow up with PCP as scheduled tomorrow - Billing Disposition and Condition Condition: STABLE Disposition: Home
[2018-02-15 12:32] VITALS: BP 172/104
== END 2018-02-15 12:31 | disposition home or self-care (01) ==
LOC: ED 10:37
DX: M54.2 Cervicalgia (principal); E11.9 Type 2 diabetes mellitus without complications; F17.210 Nicotine dependence, cigarettes, uncomplicated
CPT/HCPCS: 96372; 99281; J1885

== ENCOUNTER 2018-07-27 16:26 | Emergency (ER) | payer MEDICARE ==
[2018-07-27 16:47] VITALS: BP 127/82
--- NOTE | 2018-07-27 17:09 | UC ---
Respiratory Complaint HPI - HPI Summary HPI Summary: 53-year-old male comes in with a chief complaint of 4-5 days of upper respiratory tract infection symptoms. Started with a runny nose. Started moved down into his chest and he has COPD and it's making him short of breath. The inhaler medication does help with his breathing. He does have sputum production. No fevers. No pedal edema. - History of Current Complaint Chief Complaint: UCRespiratory Stated Complaint: CONGESTION,FATIGUE Time Seen by Provider: 07/27/18 16:53 Pain Intensity: 4 - Allergies/Home Medications Allergies/Adverse Reactions: Allergies Allergy/AdvReac Type Severity Reaction Status Date / Time shellfish derived Allergy Severe Difficulty Verified 07/27/18 16:47 Breathing PMH/Surg Hx/FS Hx/Imm Hx Previously Healthy: Yes Endocrine History: Diabetes Cardiovascular History: Hypertension Respiratory History: COPD Other History Of: Negative For: Anticoagulant Therapy - Surgical History Surgical History: Yes Surgery Procedure, Year, and Place: Tonsillectomy, vasectomy, lumbar fusion 2002 , R hip slipped capital femoral epiphysis pinned 1977, PINS REMOVED IN 1982, ventral hernia repair, colon resection 2006, lobectomy left lung 75%, tumors removed right lung, CHEMO PORT PLACED AND REMOVED - Family History Known Family History: Positive: Cardiac Disease, Hypertension, Diabetes, Other - [place] - both parents and grandparents. - Social History Alcohol Use: Rare Alcohol Amount: 0-2 per week Substance Use Type: None Smoking Status (MU): Current Every Day Smoker Type: Cigarettes Amount Used/How Often: 1/4 PPD Length of Time of Smoking/Using Tobacco: 35 years Have You Smoked in the Last Year: Yes Household Exposure Type: Cigarettes Review of Systems All Other Systems Reviewed And Are Negative: Yes Constitutional: Positive: Negative Skin: Positive: Negative Eyes: Positive: Negative ENT: Positive: Nasal Discharge, Sinus Congestion Respiratory: Positive: Shortness Of Breath, Cough, Other - SEE HPI Cardiovascular: Positive: Negative Gastrointestinal: Positive: Negative Motor: Positive: Negative Neurovascular: Positive: Negative Musculoskeletal: Positive: Negative Neurological: Positive: Negative Psychological: Positive: Negative Is Patient Immunocompromised?: No Physical Exam Triage Information Reviewed: Yes Appearance: No Pain Distress, Well-Nourished, Ill-Appearing - MILD Vital Signs: Initial Vital Signs Temp 95.9 F 07/27/18 16:38 Pulse 75 07/27/18 16:38 Resp 20 05/06/19 16:38 BP 127/82 07/27/18 16:38 Pulse Ox 99 07/27/18 16:38 Vital Signs Reviewed: Yes Eye Exam: Normal Eyes: Positive: Conjunctiva Clear ENT: Positive: Pharyngeal erythema, Nasal congestion, Nasal drainage, TMs normal Neck exam: Normal Neck: Positive: Supple Respiratory: Positive: No respiratory distress, Rhonchi, Wheezing Cardiovascular: Positive: RRR Musculoskeletal Exam: Normal Musculoskeletal: Positive: Strength Intact, ROM Intact, No Edema Neurological: Positive: Alert, Muscle Tone Normal Psychological Exam: Normal Psychological: Positive: Age Appropriate Behavior Skin Exam: Normal Respiratory Course/Dx - Course Course Of Treatment: DISCUSSED VIRAL VERSES BACTERIAL INFECTION AND THE ROLE OF ANTIBIOTICS. THE PATIENT PREFERS TO BE ON ANTIBIOTICS AT THIS TIME. - Differential Dx/Diagnosis Provider Diagnosis: Bronchitis, COPD (chronic obstructive pulmonary disease), Rash Discharge - Sign-Out/Discharge Documenting (check all that apply): Patient Departure All imaging exams completed and their final reports reviewed: No Studies - Discharge Plan Condition: Stable Disposition: HOME Prescriptions: Azithromyxin LETICIA (NF) [Z-Leticia (Zithromax) 250 mg tabs #6] 2 tab PO .TODAY, THEN 1 DAILY #6 tab Clotrimazole [Antifungal] 1 applic TOPICAL BID #14 gm predniSONE TAB* [Deltasone 20 MG TAB*] 40 mg PO DAILY #10 tab Patient Education Materials: Acute Bronchitis (ED), COPD (Chronic Obstructive Pulmonary Disease) (ED), Acute Rash (ED) Referrals: Mellisa Tamez MD [Primary Care Provider] - [facility] [place]FERRAL [Outside] Tato Tolentino MD [Medical Doctor] - Additional Instructions: FOLLOW UP WITH YOUR DOCTOR IF NOT COMPLETELY IMPROVED. GO TO THE EMERGENCY DEPARTMENT IF YOUR CONDITION WORSENS OR ANY QUESTIONS OR CONCERNS. - Billing Disposition and Condition Condition: STABLE Disposition: Home
== END 2018-07-27 17:20 | disposition home or self-care (01) ==
LOC: UCEAST 16:26
DX: J44.9 Chronic obstructive pulmonary disease, unspecified (principal); R21 Rash and other nonspecific skin eruption; E11.9 Type 2 diabetes mellitus without complications; I10 Essential (primary) hypertension; Z91.013 Allergy to seafood; F17.210 Nicotine dependence, cigarettes, uncomplicated
CPT/HCPCS: 99212; G0463

== ENCOUNTER 2019-03-01 11:28 | Emergency (ER) | payer MEDICARE ==
--- OUTSIDE RECORDS SUMMARY | 2019-03-01 11:33 | XMS REPORT | Summary of Care ---
:1965 Author Organization [facility] Address [address] [place] [address] Care Team Providers Name Role Phone Darío Anderson MD Primary Care Provider Reason for Visit Reason Comments Follow Up digestive trouble, wants back on lactulose Encounter Details Date Type Department Care Team Description 01/14/2019 Office Visit Eva Alvarez MD Other constipation (Primary Dx); Gastroenterology/Hepa [address] Morbid obesity ([facility]); [place] [address] Simple chronic bronchitis ([facility]); [address] [phone] Narcotic dependence ([facility]); [place] [address] Current mild episode of major depressive disorder, unspecified whether recurrent ([facility]) [phone] Allergies Active Allergy Reactions Severity Noted Date Comments Shell Fish Respiratory Reaction 10/09/2009 documented as of this encounter (statuses as of 01/20/2019) Medications Medication Sig Dispensed Refills Start Date End Date Status fluticasone-salmeter Take 1 INHL by 3 Inhaler 3 09/09/2012 Active ol diskus (ADVAIR inhalation TWICE DISKUS) 100-50 DAILY. MCG/DOSE Inhalation AEROSOL POWDER, BREATH ACTIVATED Additional information Patient taking differently: 1 INHL Inhalation DAILY, Reported on 08/06/2016 8 :57 AM cyclobenzaprine Take 1-2 Tabs by 60 Tab 5 09/10/2013 Active (FLEXERIL) 10 MG Oral mouth EVERY TabIndications: Chronic BEDTIME. pain syndrome bisacodyl (DULCOLAX) 5 Take 15 mg by 90 Tab 5 09/10/2013 Active MG Oral Tab mouth EVERY THREE ECIndications: Chronic DAYS. constipation Fluoxetine HCl 40 MG Take 1 Cap by 30 Cap 5 12/15/2013 Active Oral CapIndications: mouth DAILY. Major depression clonazePAM (KLONOPIN) 2 Take 1 Tab by 90 Tab 0 02/09/2014 Active MG Oral TabIndications: mouth THREE TIMES Chronic pain syndrome DAILY. HYDROmorphone Take 1 Tab by 60 Tab 0 02/09/2014 Active (DILAUDID) 4 MG Oral mouth EVERY TabIndications: Chronic TWELVE HOURS pain syndrome NEEDED for Pain. MAGNESIUM OXIDE PO Take by mouth. 0 Active POTASSIUM CHLORIDE PO Take by mouth. 0 Active Acidophilus Oral Cap Take 1 Cap by 30 Cap 3 10/05/2014 Active mouth DAILY. albuterol HFA Take 2 Puffs by 0 Active (VENTOLIN) 108 (90 inhalation. BASE) MCG/ACT Inhalation Aero Soln albuterol-ipratropium Take 2 Puffs by 0 Active (COMBIVENT) 18-103 inhalation FOUR MCG/ACT Inhalation TIMES DAILY. Aerosol polyethylene glycol Take 17 g by 0 Active (EQL CLEARLAX) Oral mouth DAILY. Powder Loperamide HCl Take by mouth. 0 Active (LOPERAMIDE A-D PO) morphine (MS CONTIN) 15 Take 15 mg by 0 Active MG Oral Tab CR mouth EVERY TWELVE HOURS. Omeprazole delayed rel Take 20 mg by 0 Active cap 20 MG Oral CAPSULE mouth. DELAYED RELEASE Methylnaltrexone Take 1 Tab by 30 Tab 0 08/06/2016 Active Et[place] 150 MG Oral Tab mouth DAILY 0700 on Empty Stomach. metFORMIN (GLUCOPHAGE) Take 1,000 mg by 0 Active 500 MG Oral Tab mouth TWICE DAILY. lactulose (CEPHULAC) 10 Take 30 mL by 450 mL 1 01/14/2019 Active GM/15ML Oral Solution mouth TWO TIMES DAILY NEEDED (for constipation). LACTULOSE PO Take by mouth. 0 Discontinued 019 (Reorder) documented as of this encounter (statuses as of 01/20/2019) Active Problems Problem Noted Date Current mild episode of major depressive disorder 01/20/2019 Constipation 07/26/2016 RLQ abdominal pain 08/25/2015 Rotator cuff tear, left 12/15/2013 Overview: Injury 2000 Refused rotator cuff tear surgery Dr Arce 2000 long-term (current) use of anticoagulants 09/10/2013 Overview: Managed by: [facility] Referring Provider: Kalpana Indication: PE Target Range: 2.0-3.0 Duration: Not Indicated Additional factors influencing anticoagulation: History of metastatic colon CA Concurrent use of medication affecting anticoagulation includes: Omeprazole may result in elevations of INR serum values and potentiation of anticoagulant effects. 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 Hemoptysis 07/04/2012 History of pulmonary embolism 07/01/2012 Overview: [facility] admission 06/22/12 High prob V/Q scan Atypical chest pain 03/14/2011 Overview: [facility] emergency room eval 03/12/11: ct scan chest no acute findings Ct chest [facility] 02/2011: no cancer recurrence. [facility] Morbid obesity 09/11/2010 Overview: This patient's BMI has been calculated and is above average, and BMI management plan is completed. General patient education discussion including: obesity- related excess mortality, weight loss link to reduction of risk factors for cardiac and other diseases Tobacco use 09/11/2010 Overview: <5 cigarettes per day 2011- Began age 22 Quit nov 2010 Restarted december 2010 1/3 pack per day Quit January 2011 using e cigarette Restarted smoking July 2011 Quit August 2011 Restarted October 2011 Quit october 2012 restarted fall 2012 10 cigarette daily Apr 2013 History of colon cancer, stage III 10/09/2009 Overview: S/p rectosigmoid resection Dr Cerda 2006 S/p chemotherapy 5FU/oxyplatin Dr Ayers 2006 [place], [place] Recurrence 03/2009-right lung and left lung tumors-s/p left lung partial lobectomy Dr Cerda 04/2009 S/p VATS right lung with lesion resection Dr Cerda 2009 S/p chemo Dr Ayers 07/2009: 5FU/avastin/oxyplatin Oncologist Dr Rizwan Gonzales [address] scan Zamudio 08/2009: complete remission Colonoscopy negative Dr Wall Stage at Diagnosis: [id number] (Stage III) Molecular Markers: Unknown KRAS Treatment to Date: 1. Colonoscopy and biopsy: 2006 2. Left Hemicolectomy: 2006 3. Modified FOLFOX6 x 12 cycles: 2006, details not clear 4. Left VATS with multiple wedge resections: 05/18/2009, positive for metastatic colon cancer 5. 5FLU/LV with Bevacizumab x 12 cycles: Completed 2009, RITA after this ECOG Performance Status: 1 Major depression 10/09/2009 Overview: Failed venlafaxine, duloxitene and citalopram in the past [facility] counselor Ale Pack Lumbar disc disease 10/09/2009 Overview: S/p spinal fusion [facility] 2002 Narcotic dependence 10/09/2009 Overview: Dilaudid therapy since 2002 Narcotic treatment contract signed with patient for Dr Clemons 09/30 Chronic low back pain 10/09/2009 Overview: S/P lumbar surgery 2002 documented as of this encounter (statuses as of 01/20/2019) Immunizations Name Administration Dates Next Due Influenza (IM) Preservative Free 03/10/2013, 02/03/2012, 02/08/2011, 01/08/2010 Influenza (IM) W/Pres 01/14/2014 documented as of this encounter Social History Tobacco Use Types Packs/Day Years Used Date Current Some Day Smoker Cigarettes 0.25 Quit: 10/31/2009 Smokeless Tobacco: Never Used Alcohol Use Drinks/Week oz/Week Comments No special occasions Sex Assigned at Date Recorded Not on file Job Start Date Occupation Industry Not on file Not on file Not on file Travel History Travel Start Travel End No recent travel history available. documented as of this encounter Last Filed Vital Signs Vital Sign Reading Time Taken Comments Blood Pressure 122/88 01/14/2019 2:15 PM EDT Pulse 88 01/14/2019 2:15 PM EDT Temperature - - Respiratory Rate - - Oxygen Saturation 94% 01/14/2019 2:15 PM EDT Inhaled Oxygen Concentration - - Weight 146.7 kg (323 lb 8 oz) 01/14/2019 2:15 PM EDT Height 180.3 cm (5' 11") 01/14/2019 2:15 PM EDT Body Mass Index 45.12 01/14/2019 2:15 PM EDT documented in this encounter Patient Instructions Patient InstructionsEva Renae MD - 01/14/2019 2:20 PM EDT1. Let's restart the lactulose: up to twice daily for constipation. 2. See me back as needed. Eva Renae MD documented in this encounter Progress Notes Eva Renae MD - 01/14/2019 2:20 PM EDT PATIENT: Ravi Kelly : 1965 DATE OF SERVICE: 01/14/2019 REFERRING PRACTITIONER: Izaiah PRIMARY CARE PROVIDER: Darío Anderson CHIEF COMPLAINT: Chief Complaint Patient presents with Follow Up digestive trouble, wants back on lactulose Subjective HISTORY OF PRESENT ILLNESS: Ravi Kelly is a 53-y.o. male who presents for follow up regarding chronic opiate-induced constipation. Patient has severe chronic back pain, managed with multiple opiates. He has had significantconstipation, managed fairly well in the past with lactulose. He has not been on lactulose and feelsthat the constipation can be better controlled. Past Medical History: Diagnosis Date Atypical chest pain CA - cancer Lung R&L Chronic pain syndrome 2003 lower back Dependency on pain medication (HCC) 2003 dilaudid Depression History of colon cancer 2007 Morbid obesity (HCC) Other malignant neoplasm without specification of site colon cancer stage IV Rheumatoid arthritis and other inflammatory polyarthropathies age 5 complete remission Past Surgical History: Procedure Laterality Date COLONOSCOPY 01/04/2013 Procedure: COLONOSCOPY; Surgeon: Nichelle Hoover MD; Location: [facility] MAIN OR ; Laterality: N/A; COLONOSCOPY, EGD COLONOSCOPY N/A 10/27/2015 Procedure: COLONOSCOPY; Surgeon: Eva Renae MD; Location: [facility] MAIN OR COLONOSCOPY N/A 10/15/2018 Procedure: COLONOSCOPY; Surgeon: Sebastian Lenz DO; Location: [facility] GI OR EGD 01/04/2013 Procedure: ENDOSCOPY UPPER GI; Surgeon: Nichelle Hoover MD; Location: [facility] MAIN OR; Laterality:N/A; EGD N/A 10/27/2015 Procedure: ENDOSCOPY UPPER GI; Surgeon: Eva Renae MD; Location: [facility] MAIN OR ID CHEST SURGERY PROCEDURE UNLISTED L partial lobectomy ID GI NUCLEAR PROCEDURE UNLISTED 2006 rectosigmoid resectomy UNLISTED PROCEDURE,MUSCULOSKELE 2002 triple level lower spinal fusion UNLISTED PROCEDURE,MUSCULOSKELE age 13 pins placed in R hip UNLISTED PROCEDURE,MUSCULOSKELE age 17 pins removed from R hip Family History Problem Relation Age of Onset Cancer Mother 20 ovarian Current Outpatient Medications Medication Sig Acidophilus Oral Cap Take 1 Cap by mouth DAILY. albuterol HFA (VENTOLIN) 108 (90 BASE) MCG/ACT Inhalation Aero Soln Take 2 Puffs by inhalation. albuterol-ipratropium (COMBIVENT) 18-103 MCG/ACT Inhalation Aerosol Take 2 Puffs by inhalation FOUR TIMES DAILY. bisacodyl (DULCOLAX) 5 MG Oral Tab EC Take 15 mg by mouth EVERY THREE DAYS. clonazePAM (KLONOPIN) 2 MG Oral Tab Take 1 Tab by mouth THREE TIMES DAILY. cyclobenzaprine (FLEXERIL) 10 MG Oral Tab Take 1-2 Tabs by mouth EVERY BEDTIME. Fluoxetine HCl 40 MG Oral Cap Take 1 Cap by mouth DAILY. fluticasone-salmeterol diskus (ADVAIR DISKUS) 100-50 MCG/DOSE Inhalation AEROSOL POWDER, BREATH ACTIVATED Take 1 INHL by inhalation TWICE DAILY. ( Patient taking differently: Take 1 INHL by inhalation DAILY.) HYDROmorphone (DILAUDID) 4 MG Oral Tab Take 1 Tab by mouth EVERY TWELVE HOURS NEEDED for Pain. lactulose (CEPHULAC) 10 GM/15ML Oral Solution Take 30 mL by mouth TWO TIMES DAILY NEEDED (for constipation). Loperamide HCl (LOPERAMIDE A-D PO) Take by mouth. MAGNESIUM OXIDE PO Take by mouth. metFORMIN (GLUCOPHAGE) 500 MG Oral Tab Take 1,000 mg by mouth TWICE DAILY. Methylnaltrexone [place] 150 MG Oral Tab Take 1 Tab by mouth DAILY 0700 on Empty Stomach. morphine (MS CONTIN) 15 MG Oral Tab CR Take 15 mg by mouth EVERY TWELVE HOURS. Omeprazole delayed rel cap 20 MG Oral CAPSULE DELAYED RELEASE Take 20 mg by mouth. polyethylene glycol (EQL CLEARLAX) Oral Powder Take 17 g by mouth DAILY. POTASSIUM CHLORIDE PO Take by mouth. No current facility-administered medications for this visit. Allergies Allergen Reactions Shell Fish Respiratory Reaction Social History Socioeconomic History Marital status: Spouse name: Not on file Number of children: Not on file Years of education: Not on file Highest education level: Not on file Occupational History Not on file Social Needs Financial resource strain: Not on file Food insecurity: Worry: Not on file Inability: Not on file Transportation needs: Medical: Not on file Non-medical: Not on file Tobacco Use Smoking status: Current Some Day Smoker Packs/day: 0.25 Types: Cigarettes Last attempt to quit: 10/31/2009 Years since quittin.2 Smokeless tobacco: Never Used Substance and Sexual Activity Alcohol use: No Comment: special occasions Drug use: No Sexual activity: Not Currently Lifestyle Physical activity: Days per week: Not on file Minutes per session: Not on file Stress: Not on file Relationships Social connections: Talks on phone: Not on file Gets together: Not on file Attends uatsdin service: Not on file Active member of club or organization: Not on file Attends meetings of clubs or organizations: Not on file Relationship status: Not on file Intimate partner violence: Fear of current or ex partner: Not on file Emotionally abused: Not on file Physically abused: Not on file Forced sexual activity: Not on file Other Topics Concern Back Care Not Asked Bike Helmet Not Asked Blood Transfusions No Caffeine Concern Not Asked Exercise No Hobby Hazards Not Asked International Travel Not Asked Service Not Asked Occupational Exposure Not Asked Seat Belt Not Asked Self-Exams Not Asked Sleep Concern Not Asked Special Diet Not Asked Stress Concern Not Asked Weight Concern Yes Social History Narrative Lives with sister in [facility] -currently from who lives in [place], [place] Patient does not work Has 3 children. Grew up in [facility]. REVIEW OF SYSTEMS: All remaining review of systems was negative except for as noted in the history of present illness/subjective. Objective PHYSICAL EXAMINATION: VITALS: BP 122/88 (BP Location: Right arm, Patient Position: Sitting) | Pulse 88 | Ht 5' 11" (1.803 m) | Wt 323 lb 8 oz (146.7 kg) | SpO2 94% | BMI 45.12 kg/m Body mass index is 45.12 kg/m. GENERAL: alert, oriented, no acute distress. HEENT: No scleral icterus, MMM Psych: Affect normal Neck: no lymphadenopathy LUNGS: clear to auscultation bilaterally. HEART: regular rhythm, no murmurs, no gallops, no rubs. ABDOMEN: general exam: soft, non-tender, non-distended, without masses or organomegaly, normal active bowel sounds, Scott's sign negative. Extrmities: no edema Skin: clear Neuro: gait normal, a&o x 3 RECTAL: exam deferred. IMPRESSION: ICD-9-CM ICD-10-CM 1. Morbid obesity ([facility]) 278.01 E66.01 2. Simple chronic bronchitis ([facility]) 491.0 J41.0 3. Narcotic dependence ([facility]) 304.90 F11.20 4. Current mild episode of major depressive disorder, unspecified whether recurrent ([facility]) F32.0 Chronic constipation Plan PLAN: 1. Restart lactulose Follow up: Schedule follow-up here as needed if symptoms worsen. Author: Eva Renae MD 01/20/2019 12:51 documented in this encounter Plan of Treatment Health Maintenance Due Date Last Done Comments MEDICARE ANNUAL WELLNESS 1965 VISIT PNEUMOCOCCAL 0-64 YRS (1 of 05/25/1971 1 - PPSV23) DEPRESSION SCREENING 1977 LIPID DISORDER SCREENING 05/25/1983 DIABETES SCREENING 12/30/2014 12/30/2013, 08/22/2013, 10/02/2011 ZOSTER IMMUNIZATION SERIES 05/25/2015 (1 of 2) INFLUENZA VACCINE (#1) 2018 01/14/2014, 03/10/2013, 02/03/2012, Additional history exists COLONOSCOPY SCREENING 10/15/2021 10/15/2018, 10/15/2018, 10/27/2015, Additional history exists HPV IMMUNIZATION SERIES Aged Out No longer eligible based on patient's age to complete this topic MENINGOCOCCAL VACCINE IMM Aged Out No longer eligible based on patient's age to complete this topic documented as of this encounter Implants Implanted Type Area Mrp Controller Device Shelf Model / Identifier Expiration Serial / Date Lot Single Port A Cath - [id number] Right: [facility] [id number] / Implanted: Qty: 1 on 01/30/2010 at [facility] [employer] / Wall [id number] documented as of this encounter Results Not on filedocumented in this encounter Visit Diagnoses Diagnosis Other constipation - Primary Morbid obesity (HCC) Morbid obesity Simple chronic bronchitis (HCC) Simple chronic bronchitis Narcotic dependence (HCC) Unspecified drug dependence, unspecified Current mild episode of major depressive disorder, unspecified whether recurrent (HCC) documented in this encounter Insurance Payer Benefit Plan / Subscriber ID Effective Dates Phone Address Type Group [facility] xxxxxxxxx 2016-[facility] Medicare TODAYS OPTIONS TODAYS OPTIONS t Advantage documented as of this encounter
[2019-03-01 11:44] VITALS: BP 150/91
--- NOTE | 2019-03-01 12:10 | UC ---
Respiratory Complaint HPI - HPI Summary HPI Summary: Mr. Kelly has had some cough, congestion and difficulty breathing for couple of days. He was traveling and when he got home he began to use his rescue inhaler and nebulizer which has helped a lot. He comes in stating that essentially is here to get put on Z-Pasha and prednisone which happens frequently when he has a URI. He denies any shortness of breath right now. - History of Current Complaint Chief Complaint: UCRespiratory Stated Complaint: CONGESTION Time Seen by Provider: 03/01/19 11:55 Hx Obtained From: Patient Onset/Duration: Gradual Onset Timing: Constant Severity Initially: Mild Severity Currently: Moderate Pain Intensity: 5 Aggravating Factors: Nothing Alleviating Factors: Bronchodilator Associated Signs And Symptoms: Positive: Dyspnea, Nasal Congestion - Allergies/Home Medications Allergies/Adverse Reactions: Allergies Allergy/AdvReac Type Severity Reaction Status Date / Time shellfish derived Allergy Severe Difficulty Verified 03/01/19 11:44 Breathing PMH/Surg Hx/FS Hx/Imm Hx Previously Healthy: Yes Endocrine History: Diabetes Respiratory History: COPD, Pulmonary Embolism, Other - Lung metastases from colon cancer Other History Of: Negative For: Anticoagulant Therapy - Surgical History Surgical History: Yes Surgery Procedure, Year, and Place: right hip. lower back. bowel resection. lung surgery /2/3 left lung - Family History Known Family History: Positive: Cardiac Disease, Hypertension, Diabetes, Other - CA - both parents and grandparents. - Social History Alcohol Use: Occasionally Alcohol Amount: special occasions Substance Use Type: None Smoking Status (MU): Current Every Day Smoker Type: Cigarettes Amount Used/How Often: 1/2 PPD Length of Time of Smoking/Using Tobacco: 35 years Have You Smoked in the Last Year: Yes Household Exposure Type: Cigarettes Review of Systems All Other Systems Reviewed And Are Negative: Yes Constitutional: Positive: Negative Skin: Positive: Negative ENT: Positive: Sore Throat, Nasal Discharge Respiratory: Positive: Shortness Of Breath, Cough Physical Exam - Summary Physical Exam Summary: He is nontoxic in appearance with stable vital signs. Triage Information Reviewed: Yes Appearance: Obese - Class III Vital Signs: Initial Vital Signs Temp 95.6 F 03/01/19 11:38 Pulse 83 03/01/19 11:38 Resp 20 03/01/19 11:38 BP 150/91 03/01/19 11:38 Pulse Ox 100 03/01/19 11:38 Vital Signs Reviewed: Yes Eyes: Positive: Conjunctiva Clear ENT Exam: Normal Respiratory: Positive: Lungs clear, No respiratory distress, No accessory muscle use Cardiovascular Exam: Normal Respiratory Course/Dx - Course Course Of Treatment: Given his underlying pulmonary issues, I think it is reasonable to give him a Z- Pasha and prednisone burst although this is likely viral and still early. - Differential Dx/Diagnosis Provider Diagnosis: Bronchitis Discharge ED - Sign-Out/Discharge Documenting (check all that apply): Patient Departure All imaging exams completed and their final reports reviewed: No Studies - Discharge Plan Condition: Stable Disposition: HOME Patient Education Materials: Acute Bronchitis (ED) Referrals: Mellisa Tamez MD [Primary Care Provider] - - Billing Disposition and Condition Condition: STABLE Disposition: Home
== END 2019-03-01 12:23 | disposition home or self-care (01) ==
LOC: UCEAST 11:28
DX: J40 Bronchitis, not specified as acute or chronic (principal); E11.9 Type 2 diabetes mellitus without complications; F17.210 Nicotine dependence, cigarettes, uncomplicated; J44.9 Chronic obstructive pulmonary disease, unspecified; I26.99 Other pulmonary embolism without acute cor pulmonale; Z85.038 Personal history of other malignant neoplasm of large intestine; Z91.013 Allergy to seafood; Z85.118 Personal history of other malignant neoplasm of bronchus and lung
CPT/HCPCS: 99212; G0463

== ENCOUNTER 2019-04-18 16:58 | Observation (INO) | payer MEDICARE ==
[2019-04-18] MEDS ORDERED: NS 0.9% 1000 ML** 1,000 ML IV ONE (17:21)
--- NOTE | 2019-04-18 17:22 | ED ---
HPI Chest Pain - HPI Summary HPI Summary: Patient is a 53 y/o M presenting to the ED via EMS for a chief complaint of palpitations and midsternal chest pain that radiates to the epigastrium for the last 2 days. The chest pain is described as a heaviness and pressure sensation. He describes the palpitations as a fluttering sensation. On EMS arrival, patient was given NTG with relief of his chest pain, but he continues to have palpitations. The chest pain improves with lying down. Patient also notes fatigue, shortness of breath, headache, and urinary frequency. He denies bilateral LE edema. He took 3 doses of ibuprofen around 13:00 on 04/18/19 for his headache. PMHx of COPD, DM, GA, and pulmonary embolism 6 years ago. Patient uses an oxygen concentrator at night and as needed during the day. He sees Dr. Lowe and had a cardiac stress test with unremarkable findings. He denies taking blood thinners. - History of Current Complaint Time Seen by Provider: 04/18/19 17:10 Hx Obtained From: Patient Onset/Duration: Atraumatic, Resolved Timing: Constant Initial Severity: Moderate Current Severity: Moderate Pain Scale Used: 0-10 Numeric Chest Pain Location: Mid Sternal Chest Pain Radiates: Yes Chest Pain Radiates To:: Epigastric Character: Heaviness, Pressure/Squeezing Aggravating Factor(s): Nothing Alleviating Factor(s): NTG 123, Other: - Lying down Associated Signs and Symptoms: Positive: Headaches, Shortness of Breath, Other: - Positive fatigue and urinary frequency. Negative: Edema - Bilateral LE Related History: Obesity - Additional Pertinent History Primary Care Physician: [facility] - Allergy/Home Medications Allergies/Adverse Reactions: Allergies Allergy/AdvReac Type Severity Reaction Status Date / Time shellfish derived Allergy Severe Difficulty Verified 03/22/19 10:36 Breathing PMH/Surg Hx/FS Hx/Imm Hx Previously Healthy: Yes Endocrine/Hematology History: Reports: Hx Diabetes Denies: Hx Anticoagulant Therapy, Hx Systemic Lupus Erythematosus, Hx Thyroid Disease Cardiovascular History: Reports: Hx Angina, Hx Deep Vein Thrombosis - & PE Denies: Hx Congestive Heart Failure, Hx Hypertension, Hx Pacemaker/ICD, Other Cardiovascular Problems/Disorders Respiratory History: Reports: Hx Asthma, Hx Chronic Obstructive Pulmonary Disease (COPD), Hx Lung Cancer - metastatic from colon , Hx Pulmonary Embolism, Hx Sleep Apnea, Other Respiratory Problems/Disorders - HX OF PE AND METASTATIC COLON CA INTO LUNG GI History: Reports: Other GI Disorders - Colon CA 2006 Denies: Hx Ulcer History: Reports: Other Problems/Disorders - Hx endometriosis Denies: Hx Dialysis, Hx Renal Disease Musculoskeletal History: Reports: Hx Arthritis, Hx Back Problems, Other Musculoskeletal History - R hip (see above), lumbar fusion 2002 Denies: Hx Rheumatoid Arthritis Sensory History: Reports: Hx Contacts or Glasses - bifocals Denies: Hx Legally Blind, Hx Deafness, Hx Hearing Aid Opthamlomology History: Reports: Hx Contacts or Glasses - bifocals Denies: Hx Legally Blind EENT History: Denies: Hx Deafness Neurological History: Denies: Hx Dementia, Hx Headaches, Hx Seizures Comment Only: Other Neuro Impairments/Disorders - PAIN CLINIC PT Psychiatric History: Reports: Hx Anxiety, Hx Panic Disorder Denies: Hx Substance Abuse - Cancer History Cancer Type, Location and Year: Colon CA first dx 2006, lung metastasis 2009. last chemo 2009 Hx Chemotherapy: - 2009 - Surgical History Surgical History: Yes Surgery Procedure, Year, and Place: right hip. lower back. bowel resection. lung surgery /2/3 left lung - Immunization History Date of Tetanus Vaccine: UTD Date of Influenza Vaccine: 12/2016 Infectious Disease History: No Infectious Disease History: Denies: Hx Clostridium Difficile, Hx Hepatitis, Hx Human Immunodeficiency Virus (HIV), Hx of Known/Suspected MRSA, Hx Shingles, Hx Tuberculosis, Hx Known/ Suspected VRE, Hx Known/Suspected VRSA, History Other Infectious Disease - Family History Known Family History: Positive: Cardiac Disease, Hypertension, Diabetes, Other - CA - both parents and grandparents. - Social History Occupation: Disabled Alcohol Use: Rare Alcohol Amount: special occasions Hx Substance Use: No Substance Use Type: Reports: None Hx Tobacco Use: Yes Smoking Status (MU): Current Every Day Smoker Type: Cigarettes Amount Used/How Often: 1/2 PPD Length of Time of Smoking/Using Tobacco: 35 years Have You Smoked in the Last Year: Yes Review of Systems Positive: Fatigue Positive: Chest Pain - Midsternal that radiates to the epigastrium Positive: Shortness Of Breath Positive: frequency - Urinary Negative: Edema - Bilateral LE Positive: Headache All Other Systems Reviewed And Are Negative: Yes Physical Exam - Summary Physical Exam Summary: Constitutional: Well-developed, Obese, Alert. (-) Distressed Skin: Warm, Dry HENT: Normocephalic; Atraumatic Eyes: Conjunctiva normal Neck: Musculoskeletal ROM normal neck. (-) JVD, (-) Stridor, (-) Tracheal deviation Cardio: Rhythm regular, rate normal, Heart sounds normal; Intact distal pulses; The pedal pulses are 2+ and symmetric. Radial pulses are 2+ and symmetric. (-) Murmur Pulmonary/Chest wall: Effort normal. (-) Respiratory distress, (-) Wheezes, (-) Rales Abd: Soft, (-) tenderness, (-) Distension, (-) Guarding, (-) Rebound Musculoskeletal: (-) Edema Lymph: (-) Cervical adenopathy Neuro: Alert, Oriented x3 Psych: Mood and affect Normal Triage Information Reviewed: Yes Vital Signs Reviewed: Yes Procedures - Sedation Patient Received Moderate/Deep Sedation with Procedure: No Diagnostics - Laboratory Result Diagrams: 04/20/19 05:33 04/20/19 05:34 Lab Statement: Any lab studies that have been ordered have been reviewed, and results considered in the medical decision making process. - Radiology Chest X-ray Radiology Interpretation Completed By: Radiologist Summary of Radiographic Findings: Chest X-ray IMPRESSION: NO ACTIVE CARDIOPULMONARY DISEASE. Reviewed by Dr. Pink. - EKG 17:05 Cardiac Rate: NL - 83 BPM EKG Rhythm: Sinus Rhythm ST Segment: Normal Ectopy: None Summary of EKG Findings: EKG at 17:05 shows normal sinus rhythm with 83 BPM, no ischemic changes. Dr. Pink has reviewed and interpreted this EKG. Chest Pain Course/Dx - Course Course Of Treatment: Patient is a 53 y/o M presenting to the ED via EMS for a chief complaint of palpitations and midsternal chest pain that radiates to the epigastrium for the last 2 days. The chest pain is described as a heaviness and pressure sensation. He describes the palpitations as a fluttering sensation. On EMS arrival, patient was given NTG with relief of his chest pain, but he continues to have palpitations. The chest pain improves with lying down. Patient also notes fatigue, shortness of breath, headache, and urinary frequency. He denies bilateral LE edema. He took 3 doses of ibuprofen around 13: 00 on 04/18/19 for his headache. PMHx of COPD, DM, GA, and pulmonary embolism 6 years ago. Patient uses an oxygen concentrator at night and as needed during the day. He sees Dr. Lowe and had a cardiac stress test with unremarkable findings. He denies taking blood thinners. On exam, obese male. In the ED course, patient was given iodixanol 96 ml IV and IV fluids. EKG at 17:05 shows normal sinus rhythm with 83 BPM, no ischemic changes. Chest X-ray IMPRESSION: NO ACTIVE CARDIOPULMONARY DISEASE. Laboratory abnormal findings: Hct 41, INR 1.12, chloride 98, creatinine 1.25, glucose 144. Chest CTA was not performed by the time of admission. At 22:07, Dr. Elio Lopez agrees to admit the patient to [facility] with a diagnosis of chest pain and dyspnea. Chest CTA is pending. Patient will be admitted to [facility] with a diagnosis of chest pain and dyspnea. - Diagnoses Provider Diagnoses: Chest pain, Dyspnea - Provider Notifications Discussed Care Of Patient With: Elio Lopez - At 22:07, Dr. Elio Lopez agrees to admit the patient to [facility] with a diagnosis of chest pain and dyspnea. Time Discussed With Above Provider: 22:07 Instructed by Provider To: Admit As Inpatient Discharge ED - Sign-Out/Discharge Documenting (check all that apply): Patient Departure - Admit - Discharge Plan Condition: Stable Disposition: ADMITTED TO [facility] - Billing Disposition and Condition Condition: STABLE Disposition: Admitted to [facility] - Attestation Statements Document Initiated by Susan: Yes Documenting Scribe: Prema Palomares Provider For Whom Scribe is Documenting (Include Credential): Leander Pink DO Scribe Attestation: Prema Marshall scribed for Leander Pink DO on 04/20/19 at 0811. Scribe Documentation Reviewed: Yes Provider Attestation: The documentation as recorded by the Prema moses accurately reflects the service I personally performed and the decisions made by Leander denney DO Status of Scribadele Document: Viewed
--- OUTSIDE RECORDS SUMMARY | 2019-04-18 17:39 | XMS REPORT | Continuity of Care Document ---
:1965 External Reference #:[id number] Author Name Barbara iRos MD Address [address] [place] [address] Care Team Providers Name Role Phone [facility] - Care Team Information Hardware Trainer [phone] Gastroenterology Problems Active Problems Provider Date Low back pain Karthikeyan Teixeira D.O. Onset: 03/28/2014 Generalized anxiety disorder Karthikeyan Teixeira D.O. Onset: 03/28/2014 Chronic obstructive lung disease Karthikeyan Teixeira D.O. Onset: 03/28/2014 Constipation Karthikeyan Teixeira D.O. Onset: 03/28/2014 Spasm Karthikeyan Teixeira D.O. Onset: 03/28/2014 Nausea Karthikeyan Teixeira D.O. Onset: 04/11/2014 Migraine with typical aura Karthikeyan Teixeira D.O. Onset: 05/12/2014 Pain in thoracic spine Karthikeyan Teixeira D.O. Onset: 05/12/2014 Chronic pain syndrome Karthikeyan Teixeira D.O. Onset: 07/06/2014 Gastroesophageal reflux disease Karthikeyan Teixeira D.O. Onset: 07/06/2014 Social History Type Date Description Comments Sex Unknown Tobacco Use Start: Unknown Patient is a current most days 1/2ppd - smoker, smokes every day Smoking is variable worse with stresses. used to smoke 2 ppd before he got lung cancer. Smoking Status Reviewed: 03/11/19 Patient is a current most days 1/2ppd - smoker, smokes every day Smoking is variable worse with stresses. used to smoke 2 ppd before he got lung cancer. Allergies, Adverse Reactions, Alerts Active Allergies Reaction Severity Comments Date Shellfish-derived Products throat swelling, difficulty 03/28/2014 breathing Medications Active Medications SIG Qnty Indications Ordering Date Provider Ipratropium [place] 2 sprays each 30ml J06.9 Barbara Rios 03/26/2019 0.06% nostril three to MD Mars Solution four times daily Prednisone 3 tab by mouth 5tabs J06.9 Barbara Rios 03/26/2019 20mg Tablets every morning for MD Mars five days Ipratropium [place] 2 sprays each 30ml J20.9 Barbara Rios 03/11/2019 0.06% nostril every LMD Solution evening as needed Potassium 1-2 as needed for OTC Unknown 03/10/2019 Tablets cramping in legs, arms, hands Ducolax Every 2-3 Days as Unknown 03/10/2019 Tablets Needed Cyclobenzaprine HCL Take One Tablet Unknown 03/10/2019 5mg By Mouth Every Tablets Morning And Afternoon And Take Two Tablets By Mouth AT Bedtime Morphine Sulfate ER take 1 tablet by Unknown 03/10/2019 15mg mouth daily Tablets ER Albuterol Nebulizer prn Unknown 03/10/2019 Treatments Oxygen Concentrator use at 2 Liters Unknown 03/10/2019 when sleepingg and during day prn Cyclobenzaprine HCL 1 by mouth three 30tabs 724.2 Karthikeyan Teixeira, 2014 10mg times a day as D.O. Tablets needed as needed for muscle spasms may make you drowsy Klonopin 1 by mouth three 90tabs F41.1 Karthikeyan Teixeira, 04/11/2014 2mg Tablets times a day D.O. Combivent Respimat 1 puff four times 2units 496 Karthikeyan Teixeira, 03/28/2014 a day D.O. 20-100mcg/Act Aerosol Morphine Sulfate Take One Tablet Unknown 15mg By Mouth Three Tablets Times A Day as Needed For Pain Maximum Daily Dose 3 Tablets History Medications Prednisone 3 tab by mouth 5tabs J20.9 Barbara Rios, 03/11/2019 - 20mg every morning for MD 03/16/2019 Tablets five days Immunizations Description No Information Available Vital Signs Date Vital Result Comment 03/26/2019 9:07am BP Systolic 126 mmHg BP Diastolic 80 mmHg Heart Rate 79 /min O2 % BldC Oximetry 98 % 03/11/2019 2:38pm BP Systolic 148 mmHg BP Diastolic 90 mmHg Heart Rate 72 /min O2 % BldC Oximetry 98 % Body Temperature 98.0 F Height 72 inches 6'0" Weight 318.00 lb w/shoes BMI (Body Mass Index) 43.1 kg/m2 Results Test Acquired Date Facility Test Result H/L Range Note CBC Auto 03/19/2019 [facility] White Blood 9.5 10^3/uL Normal 3.5- 10.8 Diff [phone] Count Red Blood Count 5.21 10^6/uL Normal 4.18-5.48 Hemoglobin 15.1 g/dL Normal 14.0-18.0 Hematocrit 44 % Normal 42-52 Mean Corpuscular Volume 84 fL Normal 80-94 Mean Corpuscular Hemoglobin 29 pg Normal 27-31 Mean Corpuscular HGB Conc 35 g/dL Normal 31-36 Red Cell Distribution Width 15 % Normal 10-15 Platelet Count 184 10^3/uL Normal 150-450 Mean Platelet Volume 7.9 fL Normal 7.4-10.4 Abs Neutrophils 6.6 10^3/uL Normal 1.5-7.7 Abs Lymphocytes 2.1 10^3/uL Normal 1.0-4.8 Abs Monocytes 0.6 10^3/uL Normal 0-0.8 Abs Eosinophils 0.1 10^3/uL Normal 0-0.6 Abs Basophils 0.1 10^3/uL Normal 0-0.2 Abs Nucleated RBC 0.0 10^3/uL Granulocyte % 70.2 % Lymphocyte % 21.8 % Monocyte % 6.5 % Eosinophil % 0.8 % Basophil % 0.7 % Nucleated Red Blood Cells % 0.0 Comp Metabolic Panel 03/19/2019 [facility] Sodium 135 mmol/L Normal 135-145 [phone] Potassium 4.7 mmol/L Normal 3.5-5.0 Chloride 98 mmol/L Low 101-111 Co2 Carbon Dioxide 31 mmol/L Normal 22-32 Anion Gap 6 mmol/L Normal 2-11 Glucose 101 mg/dL High 70-100 Blood Urea Nitrogen 20 mg/dL Normal 6-24 Creatinine 1.09 mg/dL Normal 0.67-1.17 BUN/Creatinine Ratio 18.3 Normal 8-20 Calcium 9.7 mg/dL Normal 8.6-10.3 Total Protein 6.5 g/dL Normal 6.4-8.9 Albumin 4.3 g/dL Normal 3.2-5.2 Globulin 2.2 g/dL Normal 2-4 Albumin/Globulin Ratio 2.0 Normal 1-3 Total Bilirubin 0.40 mg/dL Normal 0.2-1.0 Alkaline Phosphatase 55 U/L Normal 34-104 Alt 30 U/L Normal 7-52 Ast 14 U/L Normal 13-39 Egfr Non- 70.8 >60 Egfr 85.6 >60 1 Laboratory test 03/19/2019 [facility] Hemoglobin A1c 6.1 % High 4.0- 5.6 2 finding [phone] (Glyco HGB) Xray 03/11/2019 [facility] X-Ray, Chest, 2 <pending Views > 1 Because ethnic data is not always readily available, this report includes an eGFR for both -Americans and non- Americans. The National Kidney Disease Education Program (NKDEP) does not endorse the use of the MDRD equation for patients that are not between the ages of 18 and 70, are , have extremes of body size, muscle mass, or nutritional status, or are non- or non-. According to the National Kidney Foundation, irrespective of diagnosis, the stage of the disease is based on the level of kidney function: Stage Description GFR(mL/min/1.73 m(2)) 1 Kidney damage with normal or decreased GFR 90 2 Kidney damage with mild decrease in GFR 60-89 3 Moderate decrease in GFR 30-59 4 Severe decrease in GFR 15-29 5 Kidney failure <15 (or dialysis) 2 Therapeutic target for the treatment of diabetes mellitus patients is <7% HBA1C, and in selective patients <6.0%. Please refer to [place] [employer] Association diabetic care guidelines for further information. Procedures Date Code Description Status 03/11/2019 13243 X-Ray Chest 2 V Completed Medical Devices Description No Information Available Encounters Type Date Location Provider Dx Diagnosis Office Visit 03/26/2019 Main Office Barbara Rios, J06.9 Acute upper 9:15a respiratory infection, unspecified E11.9 Type 2 diabetes mellitus without complications Office Visit 03/11/2019 2:00p Main Office Barbara Rios J20.9 Acute bronchitis, MD unspecified E11.9 Type 2 diabetes mellitus without complications Z85.038 Personal history of malignant neoplasm of large intestine F17.210 Nicotine dependence, cigarettes, uncomplicated Z68.41 Body mass index (BMI) 40.0-44.9, adult Assessments Date Code Description Provider 03/26/2019 J06.9 Acute upper respiratory infection, unspecified Barbara Rios MD 03/26/2019 E11.9 Type 2 diabetes mellitus without complications Barbara Rios MD 03/11/2019 J20.9 Acute bronchitis, unspecified Barbara Rios MD 03/11/2019 E11.9 Type 2 diabetes mellitus without complications Barbara Rios MD 03/11/2019 Z85.038 Personal history of other malignant neoplasm Brabara Rios MD of large intestine 03/11/2019 F17.210 Nicotine dependence, cigarettes, uncomplicated Barbara Rios MD 03/11/2019 Z68.41 Body mass index (BMI) 40.0-44.9, adult Barbara Rios MD Plan of Treatment Future Appointment(s):04/09/2019 8:55 am - Barbara Rios MD at Main [id number] - Barbara Rios MDJ06.9 Acute upper respiratory infection, unspecifiedNew Medication:Ipratropium [place] 0.06 % - 2 sprays each nostril three to four times dailyPrednisone 20 mg - 3 tab by mouth every morning for five daysFollow up:f/u two vkpezR97.9 Type 2 diabetes mellitus without complicationsComments:Diet controlled. well controlled A1c was 6.1, will continue off medication at this time. Functional Status Description No Information Available Mental Status Description No Information Available Referrals Description No Information Available
[2019-04-18 18:10] LABS: ABS Lymphocytes 1.1 10^3/ul (1.0-4.8); ABS Monocytes 0.5 10^3/ul (0-0.8); ABS Neutrophils 4.1 10^3/ul (1.5-7.7); Eosinophil % 0.8 %; Hematocrit 41 % (42-52); Hemoglobin 14.2 g/dL (14.0-18.0); Lymphocyte % 18.7 %; Mean Corpuscular HGB Conc 35 g/dL (31-36); Mean Corpuscular Hemoglobin 29 pg (27-31); Mean Corpuscular Volume 83 fL (80-94); Mean Platelet Volume 7.5 fL (7.4-10.4); Nucleated Red Blood Cells % 0.1; Platelet Count 170 10^3/uL (150-450); Red Blood Count 4.91 10^6 /uL (4.18-5.48); Red Cell Distribution Width 15 % (10-15); White Blood Count 5.7 10^3/uL (3.5-10.8)
[2019-04-18 18:21] LABS: INR 1.12 (0.82-1.09)
[2019-04-18 18:27] LABS: Albumin 3.9 g/dL (3.2-5.2); Albumin/Globulin Ratio 1.6 (1-3); BUN/Creatinine Ratio 13.6 (8-20); Calcium 8.9 mg/dL (8.6-10.3); EGFR African American 73.1 (>60); EGFR Non-African American 60.4 (>60); Globulin 2.5 g/dL (2-4); Potassium 3.6 mmol/L (3.5-5.0); Total Bilirubin 0.4 mg/dL (0.2-1.0); Total Protein 6.4 g/dL (6.4-8.9)
[2019-04-18] MEDS ORDERED: Iodixanol* (CONTRAST) 320 MG/ML 100 ML SDV IV ONE (21:55)
[2019-04-19] MEDS ORDERED: Albuterol HFA INHALER* 8 gm MDI INH PRN (00:10)
[2019-04-19] MEDS ORDERED: Atorvastatin* 80 MG TAB PO ONE (00:16)
[2019-04-19] MEDS ORDERED: Aspirin TAB* 325 MG PO ONE (00:16)
[2019-04-19] MEDS ORDERED: Cyclobenzaprine TAB* 10 MG PO PRN (00:51)
[2019-04-19] MEDS: Morphine ORAL.SOLN 10 mg* 2 MG/ML UDC 5 ml PO PRN ×3 (02:22→23:41)
[2019-04-19] MEDS ORDERED: Calcium Carbonate CHEW TAB* 500 MG (TUMS) PO ONE (03:03)
[2019-04-19] MEDS: Metoprolol Tartrate TAB* 25 MG PO SCH ×2 (09:17→20:52)
[2019-04-19] MEDS ORDERED: Aminophylline IV* 25 MG/ML 10 ML VIAL ONE (09:36)
[2019-04-19] MEDS ORDERED: Regadenoson* 0.4 MG/5 ML SYRINGE ONE (09:36)
--- NOTE | 2019-04-19 10:08 | ECHO ---
*[facility]* [place] [address] Fax #: [phone] Transthoracic Echocardiogram Patient: Ravi Kelly : 1965 Study Date: 04/19/2019 Age: 53 Gender: M HR: 52 bpm Height: 71 in /180.3 cm BSA: 2.58 m^2 Weight: 319.3 lb /145.2 kg BMI: 44.6 kg/m^2 *Double Cut Off Saw Operator: * Aletha Alcaraz [facility] *Referring Physician: * Kassandra Sorensen *Reading Physician: * Rogelio Dennis MD Indications: Chest Pain, unspecified. Palpitations. History: Pulmonary Embolism. COPD. The patient has a colon malignancy with metastatis to the lungs s/p Chemotherapy. PMH: Myocardial infarction. Risk factors: Diabetes mellitus. Morbidly obese. Conclusions Summary: - Left ventricle: The cavity size is normal. Wall thickness is mildly increased. Systolic function is normal. The estimated ejection fraction is 55-60%. Wall motion is normal; there are no regional wall motion abnormalities. - Right ventricle: The cavity size is normal. Systolic function is normal. - Left atrium: The atrium is mildly dilated. - Aorta: The ascending aorta internal dimension in the A-P direction, maximal systolic dimension is 3.7 cm. - Pulmonary arteries: Systolic pressure can not be accurately estimated. - No significant valvular abnormalities noted. Recommendations: Compared to prior study from 06/2017, no clinically significant changes noted. Study data: Transthoracic echocardiogram. Procedure: Transthoracic echocardiography was performed. Image quality was fair. The study was technically limited due to poor patient compliance due to pain from surgery performed in the past, and body habitus. Complete 2D, spectral Doppler, and color flow Doppler. Location: Bedside. Patient status: Inpatient. Patient room number: 444-01. Rhythm: Bradycardia. Findings Left ventricle: The cavity size is normal. Wall thickness is mildly increased. Systolic function is normal. The estimated ejection fraction is 55-60%. Wall motion is normal; there are no regional wall motion abnormalities. Left ventricular diastolic function parameters are indeterminate. Right ventricle: The cavity size is normal. Systolic function is normal. Left atrium: The atrium is mildly dilated. Right atrium: The atrium is at the upper limits of normal in size. Mitral valve: The leaflets are mildly thickened. There is trace regurgitation. Aortic valve: The valve is trileaflet. The leaflets are mildly thickened. There is no evidence of stenosis. There is no significant regurgitation. Tricuspid valve: The leaflets are normal thickness. There is no evidence of stenosis. There is trace regurgitation. Pulmonic valve: The leaflets are normal thickness. There is no evidence of stenosis. There is trace regurgitation. Aorta: Aortic root: The aortic root is appears normal. Ascending aorta: The ascending aorta is mildly dilated. Aortic arch: The aortic arch is mildly dilated. Pericardium: A prominent pericardial fat pad is present. There is no significant pericardial effusion. Pulmonary arteries: Systolic pressure can not be accurately estimated. Systemic veins: Not well visualized. Measurements Left ventricle Value Ref Right atrium continued Value Ref AMI, LAX 5.2 cm 4.2 - 5.8 ML dim, ES, A4C 4.4 cm 2.6 - 4.4 ESD, LAX 3.3 cm 2.5 - 4.0 Estimated RAP 8 mm Hg --------- FS, LAX 38 % 25 - 43 PW, ED, LAX (H) 1.2 cm 0.6 - 1.0 Aortic valve Value Ref FS 38 % 25 - 43 Nat diam, ED 2.4 cm --------- PW, ED (H) 1.2 cm 0.6 - 1.0 Peak v, S 1.14 m/sec --------- E', lat nat, TDI (L) 8.1 cm/sec >=10.0 VTI, S 23.4 cm - -------- E/e', lat nat, 10 Mean grad, S 3.0 mm Hg ---- ----- TDI Peak grad, S 5.0 mm Hg --------- E', med nat, TDI (L) 6.6 cm/sec >=7.0 LVOT/AV, VTI ratio 0.73 - -------- E/e', med nat, 13 TDI Mitral valve Value Ref E', avg, TDI 7.4 cm/sec Peak E 0.83 m/sec ---- ----- E/e', avg, TDI 11 <=14 Peak A 0.67 m/sec - -------- Decel time 264 ms --------- LVOT Value Ref Peak grad, D 2.8 mm Hg --------- Peak jt, S 0.88 m/sec Peak E/A ratio 1.3 --------- VTI, S 17.0 cm Mean grad, S 1 mm Hg Pulmonic valve Value Ref Peak v, S 0.99 m/sec --------- Ventricular septum Value Ref Peak grad, S 4.0 mm Hg --------- IVS, ED (H) 1.1 cm 0.6 - 1.0 Aortic root Value Ref Right ventricle Value Ref Root diam 3.3 cm <4.6 AMI, LAX 3.8 cm AMI minor ax, (H) 4.8 cm 1.9 - 3.5 Ascending aorta Value Ref A4C mid AAo AP diam, S 3.7 cm --------- AAo AP diam/bsa, S 1.4 cm/m^2 --------- Left atrium Value Ref AP dim, ES 3.60 cm 3.00 - Aortic arch Value Ref 4.00 Arch diam 3.1 cm --------- ML dim, A4C 5.4 cm SI dim, A4C 5.2 cm Decending aorta Value Ref Vol/bsa, ES, 1-p 31 ml/m^2 12 - 37 Joanne peak jt 0.93 m/sec --------- A4C Vol/bsa, ES, A/L 27 ml/m^2 16 - 34 Right atrium Value Ref SI dim, ES 4.8 cm 3.4 - 5.3 Legend: (L) and (H) philip values outside specified reference range. Prepared and electronically signed by Rogelio Dennis MD 04/19/2019 10:07
[2019-04-19] MEDS: Morphine TAB Extended Release (*) 15 MG TAB.ER PO SCH ×2 (10:42→22:57)
[2019-04-19] MEDS: Cyclobenzaprine TAB* 10 MG PO PRN ×2 (10:42→13:59)
[2019-04-19] MEDS: Aspirin 81 mg CHEW TAB* 81 MG TAB.CHEW PO SCH (10:42)
--- NOTE | 2019-04-19 12:04 | HP ---
HISTORY AND PHYSICAL: DATE OF ADMISSION: 04/19/19 ADMITTING PROVIDER: Elio Lopez MD PRIMARY CARE PROVIDER: Karthikeyan Teixeira DO CHIEF COMPLAINT: Chest pressure, shortness of breath, fluttering sensation. HISTORY OF PRESENT ILLNESS: Ravi Kelly is a 53-year-old male with past medical history of [id number] diabetes mellitus, hyperlipidemia, stage 4 colon cancer metastatic to the lung (reportedly), status post last chemo about 10 years ago and lobectomy, pulmonary embolism. For approximately 2 days, he has had sensation of chest pressure and fluttering, shortness of breath. It seemed positional and improved when he lies down flat and worsens if he sits up in bed or walks. He denies any episodes of anxiety or panic attacks. If he sleeps at least 4 to 6 hours, upon waking it is somewhat improved. He denies any cough, fever, chills, wheezing. He is a current smoker , but he has been cutting back in the setting of not feeling well over the last few days. In [facility] Emergency Room, he had initial negative troponins x2 and given his history of pulmonary embolism, he had a CTA of the chest, which demonstrated no pulmonary embolism. There are postsurgical changes in the left hemothorax with slight interstitial prominence and minimal scattered fibroatelectatic change. He was referred to hospitalist service for ACS rule out. PAST MEDICAL HISTORY: Ioi-zcjjoyk-byrtwbopd diabetes mellitus; what he reports is stage 4 colon cancer, status post lobectomy, chemotherapy, partial colon resection; pulmonary embolism; panic attacks; juvenile rheumatoid arthritis; TERRI , noncompliant with mask. MEDICATIONS: Include: 1. Morphine extended release 15 mg p.o. b.i.d. and morphine immediate release 15 mg p.o. t.i.d. p.r.n. prescribed through Meena Maravilla NP 2. Albuterol 2 puffs inhaled q.4 hours p.r.n. 3. Cyclobenzaprine 5 mg p.o. t.i.d. p.r.n. ALLERGIES: No known drug allergies, but shellfish creates severe difficulty breathing. FAMILY HISTORY: His father of lung cancer at age 70, he also had a heart attack at age 57. His mother of cancer of unknown origin at age 53. She may have accidentally overdosed potentially in her final stage of illness. SOCIAL HISTORY: The patient is a current smoker, smoking for 40 years. He is cut back to about 5 or 6 cigarettes over the last recent interval and even further over the last few days. Occasional alcohol use. He is . His medical surrogate is his sister, Cherie Castro. REVIEW OF SYSTEMS: Complete 14-point review of systems is negative except as per HPI. He denies any orthopnea. PHYSICAL EXAMINATION VITAL SIGNS: Temperature 97.8, pulse rate 78, respiratory rate 18, blood pressure initially 96/66, satting 98% on room air. HEENT: Normocephalic, atraumatic. Pupils equal, round, and reactive to light. Extraocular muscles are intact. No scleral icterus. LUNGS: Clear to auscultation bilaterally with no wheezing, rales, or rhonchi. CARDIOVASCULAR: Regular rate and rhythm. No murmurs, rubs, or gallops. ABDOMEN: Soft, nontender, obese. No rebound, no guarding. EXTREMITIES: Warm, well perfused. No peripheral edema. NEURO: Cranial nerves II through XII intact. Moving all extremities. SKIN: No lesions. No rashes. DIAGNOSTIC STUDIES/LAB DATA: White count 5.7, hemoglobin 14.2, hematocrit 41, platelets 170. INR 1.12. Sodium 137, potassium 3.6, chloride 198, BUN 17, creatinine 1.25, glucose 144, total bili is 0.4, AST 16, ALT 28, alk phos 50. Troponin 0.00 and 0.01. Albumin 3.9. Lipid panel had an LDL 139, HDL 47. Imaging: Chest x-ray demonstrated no active cardiopulmonary disease. CTA of the chest, impression: 1. Postsurgical changes in the left hemothorax with slight interstitial prominence and minimal scattered fibroatelectatic change. 2. Otherwise negative CTA of the chest. No pulmonary embolism is identified. EKG demonstrated normal sinus rhythm, normal axis, poor R-wave progression, normal intervals, no ST elevations or depressions; that is at 1705. Repeat at 0132, sinus bradycardia, heart rate 57, no ST elevations or depressions, slight flattening of T-wave in V1 and T-wave inversion in lead III. ASSESSMENT AND PLAN: Ravi Kelly is a 53-year-old male with past history of non- insulin-dependent diabetes mellitus, moderate obesity with BMI 44.7, hypertension, hyperlipidemia, and resolved reported stage 4 colon cancer metastatic to the lung, presenting with chest pressure, shortness of breath, fluttering sensation, who has had a negative CTA, ruling out pulmonary embolism and he has been admitted for acute coronary syndrome rule out. Initial troponins negative x2 and now third troponin is back and negative as well. He is being ordered for an echocardiogram and a nuclear stress test. His last echo in our system was from June 2012, which showed EF of 60% to 65%, septal flattening of the interventricular septum consistent with right ventricular volume or pressure overload. I just do not know if it was during the setting of his pulmonary embolism, he had a cardiac stress test 07/01/17, which shows intermediate risk with stress-induced apical and inferior septal defects. I am starting him on metoprolol tartrate 12.5 mg p.o. q.12 hours, again titrate up if his blood pressure tolerates. I have started him on Lipitor 80 mg once in the emergency room and daily thereafter, aspirin 324 mg once and then 81 mg thereafter. We will continue his chronic pain medications with morphine extended release 15 mg p.o. b.i.d. and immediate release 15 mg p.o. t.i.d. p.r.n. along with his cyclobenzaprine 10 mg at bedtime and 5 mg at 0900 and 1400. Depending on clinical course, could consider heparin drip or nitroglycerin. He did have a recent hemoglobin A1c of 6.1% on 03/19/19, LDL here is 139 with an HDL of 47. He is a full code. He will be n.p.o. except meds. [id number]/[facility] #: [id number] [facility]
--- NOTE | 2019-04-19 16:22 | PN ---
Subjective Date of Service: 04/19/19 Interval History: Patient felt his chest pain greatly improved. He recalled his chest pain last night as "car on the chest", happens when he was resting, together with SOB. It improved after nitroglycerin. Patient had first day stress test today, however due to his body habitus , he needs to have second part tomorrow with nuclear medicine. He complained of back pain which was chronic, he was on morphine ER and IR at home. Objective Active Medications: Albuterol (Ventolin Hfa Inhaler*) 2 puff INH Q4H PRN PRN Reason: SOB/WHEEZING Aspirin (Aspirin 81 Mg Chew Tab*) 81 mg PO DAILY [facility] Last Admin: 04/19/19 10:42 Dose: 81 mg Atorvastatin Calcium (Lipitor*) 80 mg PO 1700 SANG Cyclobenzaprine HCl (Flexeril Tab*) 5 mg PO BID@0900,1400 PRN PRN Reason: PAIN Last Admin: 04/19/19 13:59 Dose: 5 mg Cyclobenzaprine HCl (Flexeril Tab*) 10 mg PO BEDTIME PRN PRN Reason: PAIN Last Admin: 04/19/19 02:23 Dose: 10 mg Metoprolol Tartrate (Lopressor Tab*) 12.5 mg PO Q12HR [facility] Last Admin: 04/19/19 09:17 Dose: Not Given Morphine Sulfate (Ms Contin(*)) 15 mg PO BID [facility] Last Admin: 04/19/19 10:42 Dose: 15 mg Morphine Sulfate (Morphine Oral.Soln 10 Mg*) 15 mg PO TID PRN PRN Reason: PAIN Last Admin: 04/19/19 14:03 Dose: 15 mg Vital Signs - 8 hr 04/19/19 04/19/19 04/19/19 10:42 11:15 13:59 Temperature 97.9 F Pulse Rate 57 Respiratory 20 16 18 Rate Blood Pressure 139/85 (mmHg) O2 Sat by Pulse 99 Oximetry 04/19/19 04/19/19 04/19/19 14:03 15:15 15:58 Temperature 96.7 F Pulse Rate 54 Respiratory 18 20 16 Rate Blood Pressure 118/61 (mmHg) O2 Sat by Pulse 99 Oximetry Oxygen Devices in Use Now: None Exam: Appearance: obese habitus, lying at 45 degree on bed, NAD Ears/Nose/Mouth/Throat: Clear Oropharnyx, Mucous Membranes Moist Neck: increased neck circumferences, unable to see JVP well Respiratory: Symmetrical Chest Expansion and Respiratory Effort, clear on auscultation Cardiovascular: NL Sounds; No Murmurs; RRR Abdominal: NL Sounds; No Tenderness; No Distention, No Hepatosplenomegaly Extremities: No Edema Neurological: Alert and Oriented x 3 Result Diagrams: 04/18/19 18:04 04/18/19 18:04 Assess/Plan/Problems-Billing Assessment: Ravi Kelly is a 53y/o male with history of diabetes, hypoerlipidemia, stage 4 colon cancer metastatic to lung s/p lobectomy and colon partial resection, pulmonary embolism. He presented with chest pain, found to have negative trop and unremarkable EKG, but multiple cardiac risk factors with typical chest pain , will need to do stress test for risk stratification. - Patient Problems (1) Chest pain Current Visit: No Status: Acute Code(s): R07.9 - CHEST PAIN, UNSPECIFIED SNOMED Code(s): 03539112 Comment: - typical chest pain with multiple risk factor and family history - trop neg, EKG unremarkable - likely angina - aspirin loading dose given - continue aspirin and atorvastatin for now while awaiting stress test - echo done today normal (2) Hyperlipidemia Current Visit: Yes Status: Acute Code(s): E78.5 - HYPERLIPIDEMIA, UNSPECIFIED SNOMED Code(s): 44410756 Comment: LDL 139 ASCVD risk 5.6% continue atorvastatin (3) Chronic pain Current Visit: No Status: Chronic Code(s): G89.29 - OTHER CHRONIC PAIN SNOMED Code(s): 63639155 Comment: - Continue home medications including morphine and flexeril (4) COPD (chronic obstructive pulmonary disease) Current Visit: No Status: Chronic Code(s): J44.9 - CHRONIC OBSTRUCTIVE PULMONARY DISEASE, UNSPECIFIED SNOMED Code(s): 95608092 Comment: - No signs of acute exacerbation - Continue nebs and dulera (5) Diabetes Current Visit: No Status: Chronic Code(s): E11.9 - TYPE 2 DIABETES MELLITUS WITHOUT COMPLICATIONS SNOMED Code(s): 60398721 Comment: - HgA1C 6.1% Feb 2019 - not on med (6) History of colon cancer Current Visit: No Status: Chronic Code(s): Z85.038 - PERSONAL HISTORY OF MALIGNANT NEOPLASM OF LARGE INTESTINE SNOMED Code(s): 892331110 Comment: - Continue to follow with PCP/ONC (7) History of lung cancer Current Visit: No Status: Chronic Code(s): Z85.118 - PERSONAL HISTORY OF MALIGNANT NEOPLASM OF BRONCHUS AND LUNG SNOMED Code(s): 892464310 Comment: - Continue to follow with PCP/ONC (8) History of pulmonary embolism Current Visit: No Status: Chronic Code(s): Z86.711 - PERSONAL HISTORY OF PULMONARY EMBOLISM SNOMED Code(s): 333345219 Comment: - No signs of PE on CTA - on Lovenox (9) DVT prophylaxis Current Visit: No Status: Acute Code(s): TFW1975 - SNOMED Code(s): 434070144 Comment: - sc Lovenox (10) Full code status Current Visit: No Status: Acute Code(s): Z78.9 - OTHER SPECIFIED HEALTH STATUS SNOMED Code(s): 500046974 Status and Disposition: Inpatient medicine Attestation Documenting Resident: Kassandra Sorensen Supervising Physician: Juan Sethi Attending/Supervising Physician Comment: Patient with typical but at-rest chest pain, now comfortable. Ruled out MD by enzymes and EKG. Second portion of [employer] cardiac stress test completed tomorrow. Anticipate discharge or cardiology eval based on results. Attestation: This service has been performed in part by a resident under the direction of a teaching physician.I, Juan Sethi, performed the service, or was physically present during the critical, or ellis portions of the service, furnished by the resident. I participated in the management of the patient.
[2019-04-19] MEDS ORDERED: Atorvastatin* 80 MG TAB PO SCH (17:00)
[2019-04-19] MEDS ORDERED: Enoxaparin(*) 40 MG/0.4 ML SYR SUBCUT SCH (17:00)
[2019-04-20 06:05] LABS: ABS Eosinophils 0.1 10^3/ul (0-0.6); ABS Lymphocytes 1.1 10^3/ul (1.0-4.8); ABS Monocytes 0.5 10^3/ul (0-0.8); ABS Neutrophils 2.8 10^3/ul (1.5-7.7); Eosinophil % 1.2 %; Hematocrit 39 % (42-52); Hemoglobin 13.5 g/dL (14.0-18.0); Lymphocyte % 25.4 %; Mean Corpuscular HGB Conc 35 g/dL (31-36); Mean Corpuscular Hemoglobin 29 pg (27-31); Mean Corpuscular Volume 83 fL (80-94); Mean Platelet Volume 7.8 fL (7.4-10.4); Nucleated Red Blood Cells % 0.3; Platelet Count 147 10^3/uL (150-450); Red Blood Count 4.65 10^6 /uL (4.18-5.48); Red Cell Distribution Width 15 % (10-15); White Blood Count 4.5 10^3/uL (3.5-10.8)
[2019-04-20 06:27] LABS: BUN/Creatinine Ratio 13.3 (8-20); Calcium 8.7 mg/dL (8.6-10.3); EGFR African American 89.4 (>60); EGFR Non-African American 73.9 (>60)
[2019-04-20] MEDS: Morphine TAB Extended Release (*) 15 MG TAB.ER PO SCH (09:25)
[2019-04-20] MEDS: Aspirin 81 mg CHEW TAB* 81 MG TAB.CHEW PO SCH (09:25)
[2019-04-20] MEDS: Metoprolol Tartrate TAB* 25 MG PO SCH (09:28)
[2019-04-20] MEDS: Morphine ORAL.SOLN 10 mg* 2 MG/ML UDC 5 ml PO PRN (09:36)
[2019-04-20 11:18] VITALS: BP 125/77
[2019-04-20] MEDS ORDERED: Atorvastatin* 40 MG TAB PO SCH (17:00)
--- NOTE | 2019-04-21 21:30 | DS ---
DISCHARGE SUMMARY: DATE OF ADMISSION: 04/19/19 DATE OF DISCHARGE: 04/20/19 PRIMARY DIAGNOSIS: Noncardiac chest pain. SECONDARY DIAGNOSES: 1. Morbid obesity. 2. Type 2 diabetes. 3. History of stage IV colon cancer metastasis to the lung with status post lobectomy, chemotherapy, and partial colon resection. 4. History of pulmonary embolism. 5. Panic attacks. 6. History of juvenile rheumatoid arthritis. 7. Obstructive sleep apnea, noncompliant with CPAP. MEDICATIONS ON DISCHARGE: 1. Cyclobenzaprine 10 mg p.o. q.h.s. and 5 mg p.o. t.i.d. p.r.n. 2. Morphine sulfate ER 15 mg p.o. b.i.d., morphine IR 15 mg p.o. t.i.d. p.r.n. pain. 3. Albuterol MDI 2 puffs q.4 hours p.r.n. wheezing. 4. Aspirin 81 mg p.o. daily. 5. Atorvastatin 40 mg p.o. q.h.s. 6. Nitroglycerin tablet sublingual q.5 minutes x3 p.r.n. CONSULTATIONS: None. PROCEDURES: None. COMPLICATIONS: None. HOSPITAL COURSE: A 53-year-old man with risk factors for heart disease including diabetes and obesity presented to the emergency department with squeezing chest pressure, will begin at rest. The patient was admitted for observation on telemetry, has serial troponins x3, which were negative. The patient's initial EKG was normal sinus rhythm, normal axis, no ischemic ST or T wave changes. The patient had a transthoracic echocardiogram on the day after admission that showed ejection fraction 55% to 60%, normal wall motion, and mildly increased wall thickness. There were no significant valvular abnormalities. Stress test with nuclear imaging showed normal ejection fraction and no perfusion defects other than a possible small infarct at the apex/inferior apical segment, which Cardiology felt was artifact. The patient's chest pain resolved in the hospital stay. He complained mainly of back pain. The patient did not appear to have heartburn, costochondritis, or any other clear cause of chest discomfort. The patient's cholesterol was checked and his LDL was 139 where with diabetes the target would be less than 100 or near 70, so he was started on a statin. He was started on aspirin also as well. DISPOSITION: Home. ACTIVITY: As tolerated. DIET: Diabetic. STATUS: Observation. CONDITION: Stable. FOLLOWUP: Follow up with primary care within 1 week. [id number]/[facility] #: [id number] JULIANE
== END 2019-04-20 12:45 | disposition home or self-care (01) ==
LOC: ED 16:58 → MEDTELE 04-19 00:09
PROVIDERS: ADMIT Internal Medicine; ATTEND Internal Medicine
DX: R07.89 Other chest pain (principal); E66.01 Morbid (severe) obesity due to excess calories; E11.9 Type 2 diabetes mellitus without complications; F41.0 Panic disorder [episodic paroxysmal anxiety]; G47.33 Obstructive sleep apnea (adult) (pediatric); R06.02 Shortness of breath; I25.2 Old myocardial infarction; Z86.711 Personal history of pulmonary embolism; Z85.038 Personal history of other malignant neoplasm of large intestine; Z79.82 Long term (current) use of aspirin; Z79.01 Long term (current) use of anticoagulants; E78.5 Hyperlipidemia, unspecified; F17.210 Nicotine dependence, cigarettes, uncomplicated
CPT/HCPCS: 36415; 71045; 71275; 78452; 80048; 80053; 80061; 83880; 84484; 85025; 85610; 93005; 93017; 93306; 96360; 96361; 96372; 99284; A9270-GY; A9502; G0378; J0280; J1650; J2785; Q9967

== ENCOUNTER 2019-12-14 21:36 | Inpatient (IN) ==
[2019-12-14] MEDS ORDERED: Iodixanol (CONTRAST) 320 MG/ML 100 ML SDV IV ONE (22:55)
[2019-12-14] MEDS ORDERED: Lorazepam PYXIS KEY PRN (23:57)
[2019-12-14] MEDS ORDERED: LORazepam 2 mg VIAL 1 ml IV PUSH ONE (23:57)
[2019-12-14] MEDS ORDERED: fentaNYL 100 mcg/2 ml 50 MCG/ML VIAL IV SLOW PU ONE (23:58)
[2019-12-15] MEDS ORDERED: Pantoprazole VIAL 40 MG VIAL IV ONE (01:07)
[2019-12-15] MEDS ORDERED: Ondansetron 4 mg VIAL 2 MG/ML 2 ml VIAL IV ONE (01:08)
[2019-12-15] MEDS ORDERED: Ondansetron 4 mg VIAL 2 MG/ML 2 ml VIAL IV PRN (01:39)
[2019-12-15] MEDS ORDERED: Albuterol HFA INHALER 8 gm MDI INH PRN (02:01)
[2019-12-15] MEDS ORDERED: Benzocaine/Butamben/Tetracain (CETACAINE - SINGLE USE) 5 gm TOPICAL ONE (02:08)
[2019-12-15] MEDS: D5LR 20 MEQ KCL 1000 ml BAG 1,000 ML IV SCH ×2 (04:54→18:50)
[2019-12-15 05:55] LABS: ABS Lymphocytes 0.6 10^3/ul (1.0-4.8); ABS Monocytes 0.6 10^3/ul (0-0.8); ABS Neutrophils 6.1 10^3/ul (1.5-7.7); Eosinophil % 0.5 %; Hematocrit 43 % (42-52); Hemoglobin 15.2 g/dL (14.0-18.0); Lymphocyte % 8.6 %; Mean Corpuscular HGB Conc 36 g/dL (31-36); Mean Corpuscular Hemoglobin 30 pg (27-31); Mean Corpuscular Volume 84 fL (80-94); Mean Platelet Volume 7.5 fL (7.4-10.4); Platelet Count 164 10^3/uL (150-450); Red Cell Distribution Width 15 % (10-15); White Blood Count 7.4 10^3/uL (3.5-10.8)
[2019-12-15 06:06] LABS: INR 1.07 (0.82-1.09)
[2019-12-15 06:14] LABS: BUN/Creatinine Ratio 11.9 (8-20); Calcium 9.2 mg/dL (8.6-10.3); EGFR African American 85.3 (>60); EGFR Non-African American 70.5 (>60); Potassium 4.9 mmol/L (3.5-5.0)
[2019-12-15] MEDS: Morphine 2 MG/ML SYRINGE IV PRN ×4 (06:53→22:52)
[2019-12-15] MEDS: Heparin 5000 UNITS/ML 1 mL VIAL SUBCUT SCH ×3 (06:53→22:51)
[2019-12-15] MEDS: Phenol 1.4% Throat Spray 177 ml BTL MT PRN ×3 (07:09→15:10)
[2019-12-15] MEDS ORDERED: Cyclobenzaprine 5 mg TAB (NF) PO PRN (16:27)
[2019-12-16] MEDS: Morphine 2 MG/ML SYRINGE IV PRN ×2 (03:10→07:26)
[2019-12-16] MEDS: Heparin 5000 UNITS/ML 1 mL VIAL SUBCUT SCH (06:07)
[2019-12-16] MEDS: D5LR 20 MEQ KCL 1000 ml BAG 1,000 ML IV SCH (09:25)
[2019-12-16 11:44] VITALS: BP 140/69
== END 2019-12-16 12:55 | disposition home or self-care (01) | DRG 389 ==
LOC: ED 21:36 → SSU 12-15 01:39
PROVIDERS: ADMIT Pediatrics; ATTEND Internal Medicine